=== PATIENT | female | born 1980 | race Caucasian/White ===

== ENCOUNTER → 2017-12-02 | Outpatient (CLI) | payer MEDICAID | LOC: PETCFH 10:19 | PROVIDERS: ATTEND Physician Assistant Medical | DX: Z02.9 Encounter for administrative examinations, unspecified (principal) ==

== ENCOUNTER 2017-12-26 12:49 | Inpatient (IN) | payer MEDICAID ==
[~2017-12-26] VITALS: Ht 162.6 cm; Wt 48.8 kg
[2017-12-26] MEDS ORDERED: DIPHENHYDRAMINE 50 MG/ML, 1ML ONE (13:17)
[2017-12-26] MEDS ORDERED: METOCLOPRAMIDE 5 MG/ML, 2ML ONE (13:18)
[2017-12-26] MEDS ORDERED: INSU1CAR11 SC (13:29)
[2017-12-26] MEDS ORDERED: METOCLOPRAMIDE 5 MG/ML, 2ML IVPush ONE (13:30)
[2017-12-26] MEDS ORDERED: DIPHENHYDRAMINE 50 MG/ML, 1ML IVPush ONE (13:30)
[2017-12-26] MEDS ORDERED: SODIUM CHLORIDE 0.9% 1,000ML IVBOLUS ONE ×2 (13:30→16:00)
[2017-12-26] MEDS ORDERED: PLEASE ENTER ALLERGIES MC SCH (13:30)
[2017-12-26 13:57] LABS: PH, VENOUS 7.327 pH (7.320-7.420)
[2017-12-26 14:02] LABS: BASOPHILS # (AUTO) 0.05 x10^3/uL (0-0.1); BASOPHILS % (AUTO) 0 % (0-1); EOSINOPHILS % (AUTO) 0 % (1-7); LYMPHOCYTES # (AUTO) 1.17 x10^3/uL (1-3.4); LYMPHOCYTES % (AUTO) 7 % (22-44); MD NO; MEAN CORPUSCULAR HEMOGLOBIN 26.7 pg (27.0-34.8); MEAN CORPUSCULAR HGB CONC 32.7 g/dL (32.4-35.8); MEAN CORPUSCULAR VOLUME 81.6 fL (80-100); MEAN PLATELET VOLUME 9.7 fL (7.4-10.4); MONOCYTES # (AUTO) 0.68 x10^3/uL (0.2-0.8); MONOCYTES % (AUTO) 4 % (2-9); NEUTROPHILS # (AUTO) 15.38 x10^3/uL (1.8-6.8); NEUTROPHILS % (AUTO) 89 % (42-75); PLATELET COUNT 449 x10^3/uL (130-400); RED BLOOD COUNT 4.79 x10^6/uL (3.82-5.3); RED CELL DISTRIBUTION WIDTH 15.8 % (9.6-15.2)
[2017-12-26 14:09] LABS: ALBUMIN 3.9 g/dL (3.4-5.0); ANION GAP 19 mmol/L (5-15); CALCIUM 8.4 mg/dL (8.5-10.1); CHLORIDE 94 mmol/L (98-107)
[2017-12-26 14:13] LABS: ALANINE AMINOTRANSFERASE 25 U/L (12-78); ALKALINE PHOSPHATASE 103 U/L (45-117); BILIRUBIN,TOTAL 0.5 mg/dL (0.2-1.0); TOTAL PROTEIN 8.6 g/dL (6.4-8.2)
[2017-12-26 14:50] LABS: ACETONE, SERUM Large (80mg/dL) mg/dL (Negative)
[2017-12-26 14:59] LABS: MICROSCOPIC NOT IND
[2017-12-26 15:04] LABS: CULTURE INDICATED? NO
[2017-12-26 15:20] LABS: AMPHETAMINE SCREEN, URINE Negative (Negative); BARBITURATE SCREEN, URINE Negative (Negative); BENZODIAZEPINE SCREEN, URINE Negative (Negative); CANNABINOID SCREEN, URINE Negative (Negative); COCAINE SCREEN, URINE Negative (Negative); METHADONE SCREEN, URINE Negative (Negative); OPIATE SCREEN, URINE Negative (Negative)
[2017-12-26] MEDS ORDERED: SODIUM CHLORIDE 0.9% 1,000 ML IV SCH (16:19)
[2017-12-26] MEDS ORDERED: INSULIN LISPRO 100 UNITS/ML, PEN SQ-INSULIN SCH ×2 (16:30)
[2017-12-26] MEDS ORDERED: ONDANSETRON ODT 4 MG PO PRN (16:30)
[2017-12-26] MEDS ORDERED: PROMETHAZINE 25 MG/ML, 1ML IM PRN (16:30)
[2017-12-26] MEDS: HEPARIN 5,000 UNITS/ML, 1ML SQ SCH (16:30)
[2017-12-26 16:39] LABS: ANION GAP 20 mmol/L (5-15); CALCIUM 8.1 mg/dL (8.5-10.1); CHLORIDE 97 mmol/L (98-107)
[2017-12-26 16:41] LABS: CREATININE 1.07 mg/dL (0.55-1.02)
[2017-12-26 17:24] VITALS: BP 166/91
[2017-12-26 17:57] LABS: ANION GAP 21 mmol/L (5-15); CALCIUM 7.9 mg/dL (8.5-10.1); CHLORIDE 101 mmol/L (98-107); CREATININE 1.06 mg/dL (0.55-1.02)
[2017-12-26] MEDS ORDERED: SODIUM CHLORIDE 0.45% 1,000 ML IV SCH (18:00)
[2017-12-26] MEDS: ONDANSETRON 2MG/ML, 2ML IVPush PRN (18:08)
[2017-12-26] MEDS ORDERED: POTASSIUM CHLORIDE 20 MEQ in SODIUM CHLORIDE 0.45% 1,000 ML IV SCH (18:30)
[2017-12-26] MEDS ORDERED: REGULAR INSULIN 62.5 UNITS in SODIUM CHLORIDE 0.9% 249.375 ML IV PRN (18:37)
[2017-12-26] MEDS ORDERED: D5%-0.45% NACL 1,000 ML IV PRN (18:37)
[2017-12-26] MEDS: MORPHINE SULFATE 4 MG/ML, 1ML IVPush PRN ×2 (18:41→22:43)
[2017-12-26 19:27] LABS: MICROSCOPIC AUTO
[2017-12-26 19:29] LABS: CULTURE INDICATED? YES
[2017-12-26] MEDS: hydrALAzine 20 MG/ML, 1ML IV PRN (19:55)
[2017-12-26] MEDS: METOCLOPRAMIDE 5 MG/ML, 2ML IVPush PRN (20:43)
[2017-12-26] MEDS ORDERED: INSULIN GLARGINE 100 UNITS/ML, PEN SQ-INSULIN SCH (21:00)
[2017-12-26 21:42] LABS: ANION GAP 22 mmol/L (5-15); CALCIUM 7.5 mg/dL (8.5-10.1); CHLORIDE 104 mmol/L (98-107); CREATININE 0.88 mg/dL (0.55-1.02)
[2017-12-26] MEDS ORDERED: SODIUM PHOSPHATE 20 MMOL in SODIUM CHLORIDE 0.9% 500 ML IV ONE (22:30)
[2017-12-26] MEDS: D5%-0.45NACL+KCL 20MEQ 1,000 ML IV SCH (22:43)
[2017-12-27] MEDS: HEPARIN 5,000 UNITS/ML, 1ML SQ SCH ×2 (00:24→08:30)
[2017-12-27] MEDS: ONDANSETRON 2MG/ML, 2ML IVPush PRN (01:19)
[2017-12-27] MEDS: MORPHINE SULFATE 4 MG/ML, 1ML IVPush PRN ×2 (03:39→10:14)
[2017-12-27] MEDS: hydrALAzine 20 MG/ML, 1ML IV PRN ×2 (03:39→15:55)
[2017-12-27] MEDS: METOCLOPRAMIDE 5 MG/ML, 2ML IVPush PRN ×3 (03:39→15:45)
[2017-12-27 03:46] LABS: MEAN CORPUSCULAR HGB CONC 32.9 g/dL (32.4-35.8); MEAN CORPUSCULAR VOLUME 81.9 fL (80-100); MEAN PLATELET VOLUME 9.2 fL (7.4-10.4); PLATELET COUNT 550 x10^3/uL (130-400); RED BLOOD COUNT 4.77 x10^6/uL (3.82-5.3); RED CELL DISTRIBUTION WIDTH 15.9 % (9.6-15.2)
[2017-12-27 03:52] LABS: ALANINE AMINOTRANSFERASE 23 U/L (12-78); ALBUMIN 3.5 g/dL (3.4-5.0); ANION GAP 19 mmol/L (5-15); CALCIUM 7.4 mg/dL (8.5-10.1); CHLORIDE 102 mmol/L (98-107); CREATININE 1.02 mg/dL (0.55-1.02)
[2017-12-27 03:57] LABS: BASOPHILS # (AUTO) 0.01 x10^3/uL (0-0.1); BASOPHILS % (AUTO) 0 % (0-1); EOSINOPHILS % (AUTO) 0 % (1-7); LYMPHOCYTES # (AUTO) 1.23 x10^3/uL (1-3.4); LYMPHOCYTES % (AUTO) 5 % (22-44); MD SCAN; MONOCYTES # (AUTO) 1.59 x10^3/uL (0.2-0.8); MONOCYTES % (AUTO) 6 % (2-9); NEUTROPHILS # (AUTO) 22.88 x10^3/uL (1.8-6.8); NEUTROPHILS % (AUTO) 89 % (42-75)
[2017-12-27 04:01] LABS: ALKALINE PHOSPHATASE 95 U/L (45-117); BILIRUBIN,TOTAL 0.3 mg/dL (0.2-1.0); TOTAL PROTEIN 8.1 g/dL (6.4-8.2)
[2017-12-27] MEDS ORDERED: MAGNESIUM SULFATE PMX 2GM/50ML 50 ML IV ONE ×2 (05:00→08:00)
[2017-12-27] MEDS ORDERED: AMPICILLIN/SULBACTAM 3 GM in SODIUM CHLORIDE 0.9% 100 ML IV SCH (08:00)
[2017-12-27] MEDS: D5%-0.45NACL+KCL 20MEQ 1,000 ML IV SCH ×4 (08:00→22:02)
[2017-12-27 08:34] LABS: ANION GAP 18 mmol/L (5-15); CALCIUM 7.4 mg/dL (8.5-10.1); CHLORIDE 100 mmol/L (98-107); CREATININE 1.24 mg/dL (0.55-1.02)
[2017-12-27] MEDS ORDERED: LIDOCAINE-MPF 2%, 2ML ONE (08:52)
[2017-12-27 09:00] VITALS: BP 133/74
[2017-12-27] MEDS ORDERED: PANTOPRAZOLE 40 MG IV IVPush SCH (09:00)
[2017-12-27] MEDS ORDERED: REGULAR INSULIN 62.5 UNITS in SODIUM CHLORIDE 0.9% 249.375 ML IV PRN (09:00)
[2017-12-27 09:22] LABS: GASTRIC PH 2 (1-7)
[2017-12-27 09:37] LABS: GASTRIC OCCULT BLD POSITIVE (NEGATIVE)
[2017-12-27] MEDS: SODIUM CHLORIDE 0.9% 1,000 ML IV SCH ×3 (12:04→23:41)
[2017-12-27 13:42] LABS: ANION GAP 12 mmol/L (5-15); CALCIUM 7.4 mg/dL (8.5-10.1); CHLORIDE 109 mmol/L (98-107)
[2017-12-27 13:47] LABS: CREATININE 1.02 mg/dL (0.55-1.02)
[2017-12-27 13:48] LABS: % IRON SATURATION 34 % (20-55); IRON LEVEL 132 mcg/dL (50-170); TOTAL IRON BINDING CAPACITY 388 mcg/dL (250-450)
[2017-12-27] MEDS: AMPICILLIN/SULBACTAM 3 GM in SODIUM CHLORIDE 0.9% 100 ML IV SCH ×2 (15:24→22:02)
[2017-12-27 16:59] LABS: ANION GAP 9 mmol/L (5-15); CHLORIDE 106 mmol/L (98-107); CREATININE 0.79 mg/dL (0.55-1.02)
[2017-12-27 18:31] VITALS: BP 116/55
[2017-12-27 21:08] LABS: ANION GAP 12 mmol/L (5-15); CALCIUM 6.8 mg/dL (8.5-10.1); CHLORIDE 105 mmol/L (98-107); CREATININE 0.73 mg/dL (0.55-1.02)
[2017-12-27] MEDS: PANTOPRAZOLE 40 MG IV IVPush SCH (22:03)
[2017-12-28 02:28] LABS: ANION GAP 8 mmol/L (5-15); CALCIUM 7.2 mg/dL (8.5-10.1); CHLORIDE 108 mmol/L (98-107); CREATININE 0.67 mg/dL (0.55-1.02)
[2017-12-28] MEDS: AMPICILLIN/SULBACTAM 3 GM in SODIUM CHLORIDE 0.9% 100 ML IV SCH ×3 (04:20→18:26)
[2017-12-28 05:42] LABS: ANION GAP 8 mmol/L (5-15); CALCIUM 6.8 mg/dL (8.5-10.1); CHLORIDE 107 mmol/L (98-107)
[2017-12-28 05:45] LABS: CREATININE 0.65 mg/dL (0.55-1.02)
[2017-12-28 05:53] LABS: MEAN CORPUSCULAR HEMOGLOBIN 27.4 pg (27.0-34.8); MEAN CORPUSCULAR HGB CONC 33.3 g/dL (32.4-35.8); MEAN CORPUSCULAR VOLUME 82.2 fL (80-100); MEAN PLATELET VOLUME 8.7 fL (7.4-10.4); PLATELET COUNT 296 x10^3/uL (130-400); RED BLOOD COUNT 3.26 x10^6/uL (3.82-5.3); RED CELL DISTRIBUTION WIDTH 16.1 % (9.6-15.2)
[2017-12-28] MEDS: D5%-0.45NACL+KCL 20MEQ 1,000 ML IV SCH (06:09)
[2017-12-28 06:17] LABS: BASOPHILS # (AUTO) 0.02 x10^3/uL (0-0.1); BASOPHILS % (AUTO) 0 % (0-1); EOSINOPHILS # (AUTO) 0.02 x10^3/uL (0-0.4); EOSINOPHILS % (AUTO) 0 % (1-7); LYMPHOCYTES % (AUTO) 8 % (22-44); MD SCAN; MONOCYTES # (AUTO) 1.03 x10^3/uL (0.2-0.8); MONOCYTES % (AUTO) 7 % (2-9); NEUTROPHILS # (AUTO) 11.84 x10^3/uL (1.8-6.8); NEUTROPHILS % (AUTO) 85 % (42-75)
[2017-12-28] MEDS: MORPHINE SULFATE 4 MG/ML, 1ML IVPush PRN ×4 (06:50→21:20)
[2017-12-28] MEDS: SODIUM CHLORIDE 0.9% 1,000 ML IV SCH ×3 (07:13→18:26)
[2017-12-28] MEDS: PANTOPRAZOLE 40 MG IV IVPush SCH ×2 (07:22→21:20)
[2017-12-28] MEDS ORDERED: SODIUM PHOSPHATE 20 MMOL in SODIUM CHLORIDE 0.9% 500 ML IV ONE (07:30)
[2017-12-28] MEDS: INSULIN GLARGINE 100 UNITS/ML, PEN SQ-INSULIN SCH ×2 (07:45→21:00)
[2017-12-28] MEDS: INSULIN LISPRO 100 UNITS/ML, PEN SQ-INSULIN SCH ×3 (10:57→21:00)
[2017-12-28 12:46] VITALS: BP 99/64
[2017-12-28] MEDS ORDERED: ERGOCALCIFEROL 50,000 UNIT CAPSULE PO SCH (16:00)
[2017-12-28 21:05] VITALS: BP 130/74
[2017-12-29] MEDS: AMPICILLIN/SULBACTAM 3 GM in SODIUM CHLORIDE 0.9% 100 ML IV SCH ×4 (00:28→23:43)
[2017-12-29] MEDS: MORPHINE SULFATE 4 MG/ML, 1ML IVPush PRN ×6 (01:59→22:47)
[2017-12-29 03:56] VITALS: BP 115/66
[2017-12-29] MEDS: SODIUM CHLORIDE 0.9% 1,000 ML IV SCH (06:29)
[2017-12-29 06:38] LABS: MEAN CORPUSCULAR HEMOGLOBIN 27.3 pg (27.0-34.8); MEAN CORPUSCULAR HGB CONC 33.1 g/dL (32.4-35.8); MEAN CORPUSCULAR VOLUME 82.6 fL (80-100); MEAN PLATELET VOLUME 8.6 fL (7.4-10.4); PLATELET COUNT 264 x10^3/uL (130-400); RED BLOOD COUNT 3.04 x10^6/uL (3.82-5.3); RED CELL DISTRIBUTION WIDTH 16.5 % (9.6-15.2)
[2017-12-29 06:47] LABS: ANION GAP 6 mmol/L (5-15); CHLORIDE 109 mmol/L (98-107)
[2017-12-29 06:48] LABS: CREATININE 0.52 mg/dL (0.55-1.02)
[2017-12-29 07:00] LABS: BASOPHILS # (AUTO) 0.05 x10^3/uL (0-0.1); BASOPHILS % (AUTO) 1 % (0-1); EOSINOPHILS # (AUTO) 0.17 x10^3/uL (0-0.4); EOSINOPHILS % (AUTO) 2 % (1-7); LYMPHOCYTES # (AUTO) 2.41 x10^3/uL (1-3.4); LYMPHOCYTES % (AUTO) 26 % (22-44); MD SCAN; MONOCYTES # (AUTO) 0.95 x10^3/uL (0.2-0.8); MONOCYTES % (AUTO) 10 % (2-9); NEUTROPHILS # (AUTO) 5.83 x10^3/uL (1.8-6.8); NEUTROPHILS % (AUTO) 62 % (42-75)
[2017-12-29 07:23] VITALS: BP 147/77
[2017-12-29] MEDS: INSULIN LISPRO 100 UNITS/ML, PEN SQ-INSULIN SCH ×4 (08:36→21:00)
[2017-12-29] MEDS: PANTOPRAZOLE 40 MG IV IVPush SCH ×2 (08:37→21:10)
[2017-12-29] MEDS: INSULIN GLARGINE 100 UNITS/ML, PEN SQ-INSULIN SCH ×2 (08:37→21:10)
[2017-12-29] MEDS: IRON SUCROSE COMPLEX 100MG/5ML IV SCH (08:38)
[2017-12-29] MEDS: ONDANSETRON 2MG/ML, 2ML IVPush PRN (09:00)
[2017-12-29 12:26] VITALS: BP 142/84
[2017-12-29 20:44] VITALS: BP 138/82
[2017-12-30] VITALS (7 sets, daily range): BP systolic 120–173; BP diastolic 72–107
[2017-12-30] MEDS ORDERED: ARTIFICIAL TEARS 15 DROP/ML BOTTLE EACHEYE PRN
[2017-12-30] MEDS: MORPHINE SULFATE 4 MG/ML, 1ML IVPush PRN ×4 (02:44→20:41)
[2017-12-30] MEDS: AMPICILLIN/SULBACTAM 3 GM in SODIUM CHLORIDE 0.9% 100 ML IV SCH ×3 (06:10→19:36)
[2017-12-30] MEDS: INSULIN GLARGINE 100 UNITS/ML, PEN SQ-INSULIN SCH ×2 (06:11→19:56)
[2017-12-30 06:22] LABS: BASOPHILS # (AUTO) 0.03 x10^3/uL (0-0.1); BASOPHILS % (AUTO) 1 % (0-1); EOSINOPHILS # (AUTO) 0.15 x10^3/uL (0-0.4); EOSINOPHILS % (AUTO) 3 % (1-7); LYMPHOCYTES # (AUTO) 1.86 x10^3/uL (1-3.4); LYMPHOCYTES % (AUTO) 32 % (22-44); MD NO; MEAN CORPUSCULAR HGB CONC 32.7 g/dL (32.4-35.8); MEAN CORPUSCULAR VOLUME 82.4 fL (80-100); MEAN PLATELET VOLUME 8.6 fL (7.4-10.4); MONOCYTES # (AUTO) 0.57 x10^3/uL (0.2-0.8); MONOCYTES % (AUTO) 10 % (2-9); NEUTROPHILS # (AUTO) 3.24 x10^3/uL (1.8-6.8); NEUTROPHILS % (AUTO) 55 % (42-75); PLATELET COUNT 277 x10^3/uL (130-400); RED BLOOD COUNT 2.93 x10^6/uL (3.82-5.3); RED CELL DISTRIBUTION WIDTH 16.1 % (9.6-15.2)
[2017-12-30 06:32] LABS: INTERNATIONAL NORMALIZED RATIO 0.95 (0.93-1.1); PROTHROMBIN TIME 9.8 Seconds (9.6-11.5)
[2017-12-30] MEDS: INSULIN LISPRO 100 UNITS/ML, PEN SQ-INSULIN SCH ×4 (07:00→19:56)
[2017-12-30] MEDS ORDERED: DEXTROSE 50%, 50ML SYRINGE ONE (08:24)
[2017-12-30] MEDS ORDERED: GLUCAGON 1 MG IM PRN (08:30)
[2017-12-30] MEDS ORDERED: DEXTROSE 50%, 50ML SYRINGE IVPush PRN (08:30)
[2017-12-30] MEDS ORDERED: DEXTROSE 4 GM TAB.CHEW PO PRN (08:30)
[2017-12-30] MEDS: PANTOPRAZOLE 40 MG IV IVPush SCH ×2 (08:31→20:41)
[2017-12-30] MEDS: IRON SUCROSE COMPLEX 100MG/5ML IV SCH (08:31)
[2017-12-30] MEDS ORDERED: INSULIN GLARGINE 100 UNITS/ML, PEN SQ-INSULIN ONE (09:00)
[2017-12-30] MEDS: SODIUM CHLORIDE FLUSH 10ML SYR IVF SCH ×2 (09:00→19:36)
[2017-12-30 11:40] LABS: ANION GAP 7 mmol/L (5-15); CALCIUM 7.9 mg/dL (8.5-10.1); CHLORIDE 104 mmol/L (98-107); CREATININE 0.54 mg/dL (0.55-1.02)
[2017-12-30] MEDS ORDERED: FENTANYL PF 100 MCG/2ML ONE (14:21)
[2017-12-30] MEDS ORDERED: MIDAZOLAM 1 MG/ML, 5ML ONE (14:21)
[2017-12-30] MEDS: hydrALAzine 20 MG/ML, 1ML IV PRN (16:24)
[2017-12-31 01:02] VITALS: BP 107/71
[2017-12-31] MEDS: AMPICILLIN/SULBACTAM 3 GM in SODIUM CHLORIDE 0.9% 100 ML IV SCH ×4 (01:08→20:07)
[2017-12-31] MEDS: MORPHINE SULFATE 4 MG/ML, 1ML IVPush PRN ×3 (01:08→09:59)
[2017-12-31 08:11] VITALS: BP 131/86
[2017-12-31] MEDS: INSULIN LISPRO 100 UNITS/ML, PEN SQ-INSULIN SCH ×4 (08:27→20:09)
[2017-12-31] MEDS: SODIUM CHLORIDE FLUSH 10ML SYR IVF SCH ×2 (08:33→20:08)
[2017-12-31] MEDS: INSULIN GLARGINE 100 UNITS/ML, PEN SQ-INSULIN SCH ×2 (09:47→20:08)
[2017-12-31] MEDS: PANTOPRAZOLE 40 MG IV IVPush SCH ×2 (09:48→20:07)
[2017-12-31] MEDS: IRON SUCROSE COMPLEX 100MG/5ML IV SCH (09:54)
[2017-12-31] MEDS: MAALOX/HYOSCYAMINE/LIDOCAINE 45 ML BTL PO SCH ×2 (12:31→19:06)
[2017-12-31] MEDS: OXYcodone IR 5MG TABLET PO PRN ×2 (13:02→20:09)
[2017-12-31 13:55] VITALS: BP 150/94
[2017-12-31] MEDS: SUCRALFATE 1 GM/10 ML UDC PO SCH ×2 (17:01→20:07)
[2017-12-31] MEDS: ONDANSETRON 2MG/ML, 2ML IVPush PRN (18:16)
[2017-12-31 19:45] VITALS: BP 130/80
[2017-12-31] MEDS ORDERED: POLYETHYLENE GLYCOL 17 GM PACKET PO ONE (20:30)
[2018-01-01 02:04] VITALS: BP 124/80
[2018-01-01] MEDS: AMPICILLIN/SULBACTAM 3 GM in SODIUM CHLORIDE 0.9% 100 ML IV SCH ×3 (02:13→13:30)
[2018-01-01] MEDS: OXYcodone IR 5MG TABLET PO PRN ×2 (03:02→08:48)
[2018-01-01] MEDS: ONDANSETRON 2MG/ML, 2ML IVPush PRN (04:15)
[2018-01-01 05:46] LABS: CHLORIDE 102 mmol/L (98-107)
[2018-01-01 05:48] LABS: BASOPHILS # (AUTO) 0.02 x10^3/uL (0-0.1); BASOPHILS % (AUTO) 0 % (0-1); EOSINOPHILS # (AUTO) 0.19 x10^3/uL (0-0.4); EOSINOPHILS % (AUTO) 2 % (1-7); LYMPHOCYTES # (AUTO) 2.25 x10^3/uL (1-3.4); LYMPHOCYTES % (AUTO) 26 % (22-44); MD NO; MEAN CORPUSCULAR HEMOGLOBIN 27.6 pg (27.0-34.8); MEAN CORPUSCULAR VOLUME 83.7 fL (80-100); MEAN PLATELET VOLUME 8.7 fL (7.4-10.4); MONOCYTES # (AUTO) 1.01 x10^3/uL (0.2-0.8); MONOCYTES % (AUTO) 12 % (2-9); NEUTROPHILS # (AUTO) 5.07 x10^3/uL (1.8-6.8); NEUTROPHILS % (AUTO) 59 % (42-75); PLATELET COUNT 352 x10^3/uL (130-400); RED BLOOD COUNT 3.27 x10^6/uL (3.82-5.3)
[2018-01-01 05:52] LABS: ANION GAP 7 mmol/L (5-15); CALCIUM 8.3 mg/dL (8.5-10.1); CREATININE 0.68 mg/dL (0.55-1.02)
[2018-01-01] MEDS: MAALOX/HYOSCYAMINE/LIDOCAINE 45 ML BTL PO SCH ×2 (07:32→12:03)
[2018-01-01] MEDS: SUCRALFATE 1 GM/10 ML UDC PO SCH ×2 (07:32→12:03)
[2018-01-01] MEDS: SODIUM CHLORIDE FLUSH 10ML SYR IVF SCH (07:33)
[2018-01-01 07:35] VITALS: BP 159/100
[2018-01-01] MEDS: PANTOPRAZOLE 40 MG IV IVPush SCH (07:40)
[2018-01-01] MEDS: METOCLOPRAMIDE 5 MG/ML, 2ML IVPush PRN (07:40)
[2018-01-01] MEDS: INSULIN LISPRO 100 UNITS/ML, PEN SQ-INSULIN SCH ×2 (08:54→12:03)
[2018-01-01] MEDS: INSULIN GLARGINE 100 UNITS/ML, PEN SQ-INSULIN SCH (08:55)
[2018-01-01] MEDS ORDERED: IRON SUCROSE COMPLEX 100MG/5ML IV SCH (09:00)
[2018-01-01] MEDS ORDERED: SUCR1ORA5 PO (10:38)
[2018-01-01] MEDS ORDERED: INSU100I13 SQ-INSULIN (10:38)
== END 2018-01-01 15:44 | disposition home or self-care (01) | DRG 380 ==
LOC: ED 14:00 → EDIP 15:40 → 3NE 16:33 → CCU 19:43 → 4EST 12-28 11:08 → DCLOUNGE 01-01 15:36
PROVIDERS: ADMIT Internal Medicine; ATTEND Family Medicine
PROC: 0T9B70Z Drainage of Bladder with Drainage Device, Via Natural or Artificial Opening (ICD-10-PCS; principal; 2017-12-26)
PROC: 02HV33Z Insertion of Infusion Device into Superior Vena Cava, Percutaneous Approach (ICD-10-PCS; 2017-12-27)
PROC: B548ZZA Ultrasonography of Superior Vena Cava, Guidance (ICD-10-PCS; 2017-12-27)
PROC: 0DJ08ZZ Inspection of Upper Intestinal Tract, Via Natural or Artificial Opening Endoscopic (ICD-10-PCS; 2017-12-30)
DX: K22.11 Ulcer of esophagus with bleeding (principal); E10.10 Type 1 diabetes mellitus with ketoacidosis without coma; E87.1 Hypo-osmolality and hyponatremia; R65.10 Systemic inflammatory response syndrome (SIRS) of non-infectious origin without acute organ dysfunction; K22.2 Esophageal obstruction; K29.60 Other gastritis without bleeding; K44.9 Diaphragmatic hernia without obstruction or gangrene; K31.84 Gastroparesis; E10.43 Type 1 diabetes mellitus with diabetic autonomic (poly)neuropathy; D50.9 Iron deficiency anemia, unspecified; K21.9 Gastro-esophageal reflux disease without esophagitis; F17.200 Nicotine dependence, unspecified, uncomplicated; E86.0 Dehydration; Z79.4 Long term (current) use of insulin
CPT/HCPCS: 36415; 36569; 71045; 76937; 77001; 80048; 80053; 80307; 80329; 81001; 81003; 82010; 82271; 82306; 82728; 82800; 82803; 82947; 82962; 83540; 83550; 83690; 83735; 83970; 84100; 84443; 84702; 85025; 85610; 85730; 86677; 87040; 87081; 87086; 93005; 96374; 96375; 99291; J0295; J1756; J1815; J2250; J2405; J2550; J3010; J3480; J3490; C1751; C9113; G0480; J0360; J1200; J2765; J3475; J7030; J7040; J7050

== ENCOUNTER 2018-01-03 21:55 | Emergency (ER) | payer MEDICAID ==
[~2018-01-03] VITALS: Ht 162.6 cm; Wt 50.0 kg
[~2018-01-03 21:55] MED LIST: INSU100I13 SQ-INSULIN; INSU1CAR11 SC; SUCR1ORA5 PO
[2018-01-03] MEDS ORDERED: MAALOX/HYOSCYAMINE/LIDOCAINE 45 ML BTL ONE (22:09)
[2018-01-03 22:24] LABS: PH, VENOUS 7.475 pH (7.320-7.420)
[2018-01-03 22:30] LABS: ACETONE, SERUM Trace (10mg/dL) mg/dL (Negative)
[2018-01-03] MEDS ORDERED: MAALOX/HYOSCYAMINE/LIDOCAINE 45 ML BTL PO ONE (22:30)
[2018-01-03] MEDS ORDERED: SUCRALFATE 1 GM/10 ML UDC PO ONE (22:30)
[2018-01-03 22:31] LABS: MEAN CORPUSCULAR HEMOGLOBIN 27.4 pg (27.0-34.8); MEAN CORPUSCULAR HGB CONC 32.8 g/dL (32.4-35.8); MEAN CORPUSCULAR VOLUME 83.7 fL (80-100); MEAN PLATELET VOLUME 8.9 fL (7.4-10.4); PLATELET COUNT 608 x10^3/uL (130-400); RED BLOOD COUNT 3.96 x10^6/uL (3.82-5.3); RED CELL DISTRIBUTION WIDTH 17.5 % (9.6-15.2)
[2018-01-03 22:35] LABS: ALBUMIN 3.4 g/dL (3.4-5.0); ANION GAP 6 mmol/L (5-15); CALCIUM 10.1 mg/dL (8.5-10.1); CHLORIDE 102 mmol/L (98-107); CREATININE 1.59 mg/dL (0.55-1.02)
[2018-01-03 22:51] LABS: BASOPHILS # (AUTO) 0.06 x10^3/uL (0-0.1); BASOPHILS % (AUTO) 1 % (0-1); EOSINOPHILS # (AUTO) 0.32 x10^3/uL (0-0.4); EOSINOPHILS % (AUTO) 3 % (1-7); LYMPHOCYTES % (AUTO) 32 % (22-44); MD SCAN; MONOCYTES # (AUTO) 1.65 x10^3/uL (0.2-0.8); MONOCYTES % (AUTO) 16 % (2-9); NEUTROPHILS # (AUTO) 5.03 x10^3/uL (1.8-6.8); NEUTROPHILS % (AUTO) 49 % (42-75)
[2018-01-03] MEDS ORDERED: HYDROmorphone 2 MG/ML, 1ML ONE (23:18)
[2018-01-03 23:24] VITALS: BP 153/89
[2018-01-03] MEDS ORDERED: HYDROmorphone 2 MG/ML, 1ML IM ONE (23:30)
[2018-01-03] MEDS ORDERED: HYDROmorphone 1 MG/ML, 1ML IM ONE (23:30)
== END 2018-01-03 23:30 | disposition home or self-care (01) ==
LOC: ED 22:37
DX: K22.10 Ulcer of esophagus without bleeding (principal); E11.10 Type 2 diabetes mellitus with ketoacidosis without coma; F17.200 Nicotine dependence, unspecified, uncomplicated
CPT/HCPCS: 36415; 80048; 82010; 82040; 82803; 85025; 93005; 96372; 99285; J1170

== ENCOUNTER 2018-02-27 22:21 | Inpatient (IN) | payer MEDICAID ==
[~2018-02-27] VITALS: Ht 162.6 cm; Wt 52.5 kg
[2018-02-27] MEDS ORDERED: REGULAR INSULIN 62.5 UNITS in SODIUM CHLORIDE 0.9% 249.375 ML IV PRN (22:32)
[2018-02-27] MEDS ORDERED: PROMETHAZINE 25 MG/ML, 1ML ONE (22:55)
[2018-02-27] MEDS ORDERED: ONDANSETRON 2MG/ML, 2ML ONE (22:56)
[2018-02-27] MEDS ORDERED: SODIUM CHLORIDE 0.9% 1,000ML IVBOLUS ONE (23:00)
[2018-02-27] MEDS ORDERED: ONDANSETRON 2MG/ML, 2ML IVPush ONE (23:00)
[2018-02-27] MEDS ORDERED: PROMETHAZINE 25 MG/ML, 1ML IM ONE (23:00)
[2018-02-27 23:04] LABS: MEAN CORPUSCULAR HEMOGLOBIN 29.8 pg (27.0-34.8); MEAN CORPUSCULAR HGB CONC 33.4 g/dL (32.4-35.8); MEAN PLATELET VOLUME 10.6 fL (7.4-10.4); PLATELET COUNT 475 x10^3/uL (130-400); RED BLOOD COUNT 5.02 x10^6/uL (3.82-5.3); RED CELL DISTRIBUTION WIDTH 15.6 % (9.6-15.2)
[2018-02-27 23:10] LABS: PH, VENOUS 7.409 pH (7.320-7.420)
[2018-02-27 23:14] LABS: ALANINE AMINOTRANSFERASE 22 U/L (12-78); ALBUMIN 3.5 g/dL (3.4-5.0); ANION GAP 24 mmol/L (5-15); CHLORIDE 65 mmol/L (98-107); CREATININE 2.79 mg/dL (0.55-1.02)
[2018-02-27 23:19] LABS: ALKALINE PHOSPHATASE 128 U/L (45-117); BILIRUBIN,TOTAL 0.4 mg/dL (0.2-1.0)
[2018-02-27 23:28] LABS: BASOPHILS # (AUTO) 0.02 x10^3/uL (0-0.1); BASOPHILS % (AUTO) 0 % (0-1); EOSINOPHILS % (AUTO) 0 % (1-7); LYMPHOCYTES # (AUTO) 1.01 x10^3/uL (1-3.4); LYMPHOCYTES % (AUTO) 4 % (22-44); MD SCAN; MONOCYTES # (AUTO) 1.38 x10^3/uL (0.2-0.8); MONOCYTES % (AUTO) 6 % (2-9); NEUTROPHILS # (AUTO) 22.27 x10^3/uL (1.8-6.8); NEUTROPHILS % (AUTO) 90 % (42-75)
[2018-02-27] MEDS ORDERED: CEFTRIAXONE PMX 1GM/50ML 50 ML IV ONE (23:45)
[2018-02-27 23:49] LABS: CULTURE INDICATED? YES; MICROSCOPIC AUTO
[2018-02-28 00:02] LABS: AMPHETAMINE SCREEN, URINE Negative (Negative); BARBITURATE SCREEN, URINE Negative (Negative); BENZODIAZEPINE SCREEN, URINE Negative (Negative); CANNABINOID SCREEN, URINE Negative (Negative); COCAINE SCREEN, URINE Negative (Negative); METHADONE SCREEN, URINE Negative (Negative); OPIATE SCREEN, URINE Negative (Negative)
[2018-02-28] MEDS ORDERED: CEFTRIAXONE PMX 1GM/50ML 50 ML ONE (00:09)
[2018-02-28 00:19] LABS: ACETONE, SERUM Large (80mg/dL) mg/dL (Negative)
[2018-02-28] MEDS ORDERED: D5%-0.45% NACL 1,000 ML IV PRN (00:41)
[2018-02-28] MEDS ORDERED: REGULAR INSULIN 62.5 UNITS in SODIUM CHLORIDE 0.9% 249.375 ML IV PRN (00:41)
[2018-02-28] MEDS ORDERED: ACETAMINOPHEN 325 MG TABLET PO PRN (01:00)
[2018-02-28] MEDS ORDERED: ONDANSETRON 2MG/ML, 2ML IVPush PRN (01:00)
[2018-02-28] MEDS ORDERED: POLYETHYLENE GLYCOL 17 GM PACKET PO PRN (01:00)
[2018-02-28] MEDS ORDERED: morphine SULFATE 10 MG/ML, 1ML IVPush PRN (01:00)
[2018-02-28] MEDS ORDERED: BISACODYL 10 MG SUPP PR PRN (01:00)
[2018-02-28] MEDS ORDERED: LABETALOL 5MG/ML, 20ML IVPush PRN (01:00)
[2018-02-28] MEDS ORDERED: PROMETHAZINE 25 MG/ML, 1ML IM PRN (01:00)
[2018-02-28] MEDS ORDERED: DOCUSATE 100 MG CAPSULE PO PRN (01:00)
[2018-02-28] MEDS ORDERED: hydrALAzine 20 MG/ML, 1ML IVPush PRN (01:00)
[2018-02-28] MEDS ORDERED: ONDANSETRON ODT 4 MG PO PRN (01:00)
[2018-02-28] MEDS ORDERED: PANTOPRAZOLE 40 MG IV ONE (01:07)
[2018-02-28] MEDS ORDERED: HEPARIN 5,000 UNITS/ML, 1ML ONE (01:07)
[2018-02-28] MEDS ORDERED: LABETALOL 5MG/ML, 20ML ONE (01:07)
[2018-02-28] MEDS: HEPARIN 5,000 UNITS/ML, 1ML SQ SCH ×4 (01:13→23:53)
[2018-02-28] MEDS: PANTOPRAZOLE 40 MG IV IVPush SCH ×2 (01:13→12:14)
[2018-02-28] MEDS: SODIUM CHLORIDE 0.9% 1,000 ML IV SCH ×4 (01:15→19:09)
[2018-02-28 01:25] LABS: ANION GAP 24 mmol/L (5-15); CHLORIDE 83 mmol/L (98-107); CREATININE 2.14 mg/dL (0.55-1.02)
[2018-02-28] MEDS ORDERED: METOCLOPRAMIDE 5 MG/ML, 2ML IVPush PRN (01:30)
[2018-02-28 01:36] LABS: FREE T4 (FREE THYROXINE) 1.09 ng/dL (0.76-1.46)
[2018-02-28 05:19] LABS: ANION GAP 11 mmol/L (5-15); CALCIUM 8.2 mg/dL (8.5-10.1); CHLORIDE 91 mmol/L (98-107); CREATININE 1.63 mg/dL (0.55-1.02)
[2018-02-28] MEDS ORDERED: POTASSIUM CHLORIDE 40 MEQ in SODIUM CHLORIDE 0.9% 500 ML IV ONE (06:00)
[2018-02-28] MEDS: SUCRALFATE 1 GM PO SCH ×2 (07:00→11:00)
[2018-02-28 09:26] LABS: ANION GAP 8 mmol/L (5-15); CALCIUM 7.8 mg/dL (8.5-10.1); CHLORIDE 94 mmol/L (98-107); CREATININE 1.45 mg/dL (0.55-1.02)
[2018-02-28] MEDS: INSULIN GLARGINE 100 UNITS/ML, PEN SQ-INSULIN SCH ×2 (10:00→20:20)
[2018-02-28] MEDS ORDERED: INSULIN LISPRO 100 UNITS/ML, PEN SQ-INSULIN SCH (11:30)
[2018-02-28] MEDS: OXYcodone IR 5MG TABLET PO PRN ×2 (12:13→20:11)
[2018-02-28 12:37] VITALS: BP 148/87
[2018-02-28] MEDS: SUCRALFATE 1 GM TABLET PO SCH ×2 (16:45→20:15)
[2018-02-28] MEDS: INSULIN LISPRO 100 UNITS/ML, PEN SQ-INSULIN SCH ×2 (16:46→20:15)
[2018-02-28 19:45] VITALS: BP_SYST 163; BP_SYST 164; BP_DIAS 94; BP_DIAS 96
[2018-03-01] MEDS: PANTOPRAZOLE 40 MG IV IVPush SCH ×2 (01:11→13:56)
[2018-03-01] MEDS: SODIUM CHLORIDE 0.9% 1,000 ML IV SCH (01:11)
[2018-03-01 02:02] VITALS: BP 128/79
[2018-03-01 05:28] LABS: BASOPHILS # (AUTO) 0.02 x10^3/uL (0-0.1); BASOPHILS % (AUTO) 0 % (0-1); EOSINOPHILS # (AUTO) 0.08 x10^3/uL (0-0.4); EOSINOPHILS % (AUTO) 1 % (1-7); LYMPHOCYTES % (AUTO) 20 % (22-44); MD NO; MEAN CORPUSCULAR HEMOGLOBIN 29.7 pg (27.0-34.8); MEAN CORPUSCULAR HGB CONC 33.3 g/dL (32.4-35.8); MEAN CORPUSCULAR VOLUME 89.2 fL (80-100); MEAN PLATELET VOLUME 9.5 fL (7.4-10.4); MONOCYTES # (AUTO) 0.91 x10^3/uL (0.2-0.8); MONOCYTES % (AUTO) 7 % (2-9); NEUTROPHILS # (AUTO) 9.32 x10^3/uL (1.8-6.8); NEUTROPHILS % (AUTO) 73 % (42-75); PLATELET COUNT 283 x10^3/uL (130-400); RED BLOOD COUNT 4.17 x10^6/uL (3.82-5.3)
[2018-03-01 05:36] LABS: ALANINE AMINOTRANSFERASE 22 U/L (12-78); ALBUMIN 2.8 g/dL (3.4-5.0); ANION GAP 10 mmol/L (5-15); CHLORIDE 101 mmol/L (98-107); CREATININE 0.73 mg/dL (0.55-1.02)
[2018-03-01 05:38] LABS: ALKALINE PHOSPHATASE 104 U/L (45-117); BILIRUBIN,TOTAL 0.2 mg/dL (0.2-1.0); TOTAL PROTEIN 6.5 g/dL (6.4-8.2)
[2018-03-01 06:51] VITALS: BP 146/83
[2018-03-01] MEDS: INSULIN LISPRO 100 UNITS/ML, PEN SQ-INSULIN SCH ×3 (07:43→15:52)
[2018-03-01] MEDS: SUCRALFATE 1 GM TABLET PO SCH ×3 (07:43→15:52)
[2018-03-01] MEDS: HEPARIN 5,000 UNITS/ML, 1ML SQ SCH ×2 (07:43→15:53)
[2018-03-01] MEDS: INSULIN GLARGINE 100 UNITS/ML, PEN SQ-INSULIN SCH (09:23)
[2018-03-01] MEDS ORDERED: INSU100I13 SQ-INSULIN (10:39)
[2018-03-01] MEDS ORDERED: SUCR1ORA5 PO (10:39)
[2018-03-01 13:04] VITALS: BP 158/90
== END 2018-03-01 16:11 | disposition home or self-care (01) | DRG 637 ==
LOC: ED 02-28 00:22 → EDIP 02-28 00:48 → 3NE 02-28 11:27
PROVIDERS: ADMIT Internal Medicine; ATTEND Internal Medicine
DX: E10.10 Type 1 diabetes mellitus with ketoacidosis without coma (principal); K85.00 Idiopathic acute pancreatitis without necrosis or infection; N17.0 Acute kidney failure with tubular necrosis; E87.1 Hypo-osmolality and hyponatremia; K22.10 Ulcer of esophagus without bleeding; D64.9 Anemia, unspecified; E10.43 Type 1 diabetes mellitus with diabetic autonomic (poly)neuropathy; E10.649 Type 1 diabetes mellitus with hypoglycemia without coma; D72.828 Other elevated white blood cell count; E86.0 Dehydration; E87.6 Hypokalemia; F17.200 Nicotine dependence, unspecified, uncomplicated; K21.9 Gastro-esophageal reflux disease without esophagitis; K31.84 Gastroparesis; Z79.4 Long term (current) use of insulin; Z87.19 Personal history of other diseases of the digestive system
CPT/HCPCS: 36415; 71045; 74176; 80048; 80053; 80307; 81001; 82010; 82803; 82962; 83036; 83690; 83735; 84100; 84145; 84439; 84443; 84703; 85025; 87040; 87086; 93005; 96361; 96365; 96372; 96375; 99291; G0378; J0696; J1644; J1815; J2405; J2550; J3480; C9113; J7030; J7040; J7050

== ENCOUNTER 2018-04-16 00:11 | Inpatient (IN) | payer MEDICAID ==
[~2018-04-16] VITALS: Ht 162.6 cm; Wt 48.7 kg
[2018-04-16] MEDS ORDERED: SODIUM CHLORIDE 0.9% 1,000 ML IV ONE (00:23)
[2018-04-16] MEDS ORDERED: PROMETHAZINE 25 MG/ML, 1ML IM ONE (00:30)
[2018-04-16] MEDS ORDERED: SODIUM CHLORIDE 0.9% 1,000ML IVBOLUS ONE ×2 (00:30→01:30)
[2018-04-16] MEDS ORDERED: ONDANSETRON 2MG/ML, 2ML IVPush ONE (00:30)
[2018-04-16] MEDS ORDERED: MORPHINE SULFATE 4 MG/ML, 1ML IVPush PRN (00:30)
[2018-04-16 00:42] LABS: PH, VENOUS 7.247 pH (7.320-7.420)
[2018-04-16 00:44] LABS: BASOPHILS # (AUTO) 0.05 x10^3/uL (0-0.1); BASOPHILS % (AUTO) 0 % (0-1); EOSINOPHILS % (AUTO) 0 % (1-7); LYMPHOCYTES # (AUTO) 1.15 x10^3/uL (1-3.4); LYMPHOCYTES % (AUTO) 6 % (22-44); MD NO; MEAN CORPUSCULAR HEMOGLOBIN 30.1 pg (27.0-34.8); MEAN CORPUSCULAR HGB CONC 32.5 g/dL (32.4-35.8); MEAN CORPUSCULAR VOLUME 92.4 fL (80-100); MEAN PLATELET VOLUME 9.9 fL (7.4-10.4); MONOCYTES # (AUTO) 0.58 x10^3/uL (0.2-0.8); MONOCYTES % (AUTO) 3 % (2-9); NEUTROPHILS # (AUTO) 17.33 x10^3/uL (1.8-6.8); NEUTROPHILS % (AUTO) 91 % (42-75); PLATELET COUNT 451 x10^3/uL (130-400); RED BLOOD COUNT 5.26 x10^6/uL (3.82-5.3); RED CELL DISTRIBUTION WIDTH 13.1 % (9.6-15.2)
[2018-04-16 00:57] LABS: ALANINE AMINOTRANSFERASE 38 U/L (12-78); ALBUMIN 3.8 g/dL (3.4-5.0); ANION GAP 31 mmol/L (5-15); CALCIUM 9.4 mg/dL (8.5-10.1); CHLORIDE 79 mmol/L (98-107); CREATININE 1.88 mg/dL (0.55-1.02)
[2018-04-16] MEDS ORDERED: MORPHINE SULFATE 4 MG/ML, 1ML ONE (00:57)
[2018-04-16] MEDS ORDERED: ONDANSETRON 2MG/ML, 2ML ONE (00:57)
[2018-04-16] MEDS ORDERED: PROMETHAZINE 25 MG/ML, 1ML ONE (00:57)
[2018-04-16 01:03] LABS: ALKALINE PHOSPHATASE 114 U/L (45-117); BILIRUBIN,TOTAL 0.7 mg/dL (0.2-1.0); TOTAL PROTEIN 8.5 g/dL (6.4-8.2)
[2018-04-16] MEDS ORDERED: REGULAR INSULIN 62.5 UNITS in SODIUM CHLORIDE 0.9% 249.375 ML IV PRN ×2 (01:05→01:30)
[2018-04-16 01:18] LABS: HEMOGLOBIN A1C 11.6 % (4.2-6.3)
[2018-04-16] MEDS: D5%-0.45% NACL 1,000 ML IV SCH ×2 (01:30→09:26)
[2018-04-16 01:34] LABS: ACETONE, SERUM Large (80mg/dL) mg/dL (Negative)
[2018-04-16 02:09] LABS: MICROSCOPIC NOT IND
[2018-04-16 02:17] LABS: AMPHETAMINE SCREEN, URINE Negative (Negative); BARBITURATE SCREEN, URINE Negative (Negative); BENZODIAZEPINE SCREEN, URINE Negative (Negative); CANNABINOID SCREEN, URINE Negative (Negative); COCAINE SCREEN, URINE Negative (Negative); METHADONE SCREEN, URINE Negative (Negative); OPIATE SCREEN, URINE Negative (Negative)
[2018-04-16 02:20] LABS: CULTURE INDICATED? NO
[2018-04-16] MEDS: SODIUM CHLORIDE 0.9% 1,000 ML IV SCH ×3 (02:33→09:26)
[2018-04-16 04:50] LABS: ANION GAP 30 mmol/L (5-15); CHLORIDE 92 mmol/L (98-107); CREATININE 1.62 mg/dL (0.55-1.02)
[2018-04-16] MEDS: ENOXAPARIN 40 MG/0.4 ML SQ SCH (08:14)
[2018-04-16] MEDS ORDERED: ENOXAPARIN 30 MG/0.3 ML SQ SCH (09:00)
[2018-04-16 09:42] LABS: ANION GAP 17 mmol/L (5-15); CALCIUM 7.7 mg/dL (8.5-10.1); CHLORIDE 105 mmol/L (98-107); CREATININE 1.31 mg/dL (0.55-1.02)
[2018-04-16] MEDS: INSULIN LISPRO 100 UNITS/ML, PEN SQ-INSULIN SCH ×3 (10:40→20:59)
[2018-04-16] MEDS: INSULIN GLARGINE 100 UNITS/ML, PEN SQ-INSULIN SCH ×2 (10:40→21:33)
[2018-04-16 14:52] VITALS: BP 173/90
[2018-04-16] MEDS: ONDANSETRON 2MG/ML, 2ML IVPush PRN ×2 (15:29→21:37)
[2018-04-16 19:46] VITALS: BP 160/58
[2018-04-17 01:28] VITALS: BP 149/60
[2018-04-17] MEDS: SODIUM CHLORIDE 0.9% 1,000 ML IV SCH ×5 (01:30→21:46)
[2018-04-17 05:35] LABS: ANION GAP 23 mmol/L (5-15); CALCIUM 7.4 mg/dL (8.5-10.1); CHLORIDE 96 mmol/L (98-107); CREATININE 0.93 mg/dL (0.55-1.02)
[2018-04-17] MEDS: ONDANSETRON 2MG/ML, 2ML IVPush PRN ×2 (05:48→23:00)
[2018-04-17 05:52] LABS: MEAN CORPUSCULAR HEMOGLOBIN 29.9 pg (27.0-34.8); MEAN CORPUSCULAR HGB CONC 33.3 g/dL (32.4-35.8); MEAN CORPUSCULAR VOLUME 89.9 fL (80-100); PLATELET COUNT 422 x10^3/uL (130-400); RED BLOOD COUNT 4.65 x10^6/uL (3.82-5.3); RED CELL DISTRIBUTION WIDTH 13.7 % (9.6-15.2)
[2018-04-17 06:42] LABS: MD YES
[2018-04-17 06:44] LABS: BAND#(MANUAL) 0.51 x10^3/uL; BANDS%(MANUAL) 2 % (0-7); BASOS#(MANUAL) 0.25 x10^3/uL (0-0.1); BASOS% (MANUAL) 1 % (0-1); LYMPH#(MANUAL) 1.01 x10^3/uL (1-3.4); LYMPHS% (MANUAL) 4 % (22-44); MONOS#(MANUAL) 0.76 x10^3/uL (0.3-2.7); MONOS% (MANUAL) 3 % (2-9); SEG#(MANUAL) 22.77 x10^3/uL (1.8-6.8); SEGS% (MANUAL) 90 % (42-75)
[2018-04-17 06:46] LABS: <PLATELET ESTIMATE> INCREASED; <RBC MORPHOLOGY> NORMAL; LARGE PLATELETS 1+
[2018-04-17 07:24] VITALS: BP 150/94
[2018-04-17] MEDS: INSULIN LISPRO 100 UNITS/ML, PEN SQ-INSULIN SCH ×5 (07:44→21:33)
[2018-04-17] MEDS: ENOXAPARIN 40 MG/0.4 ML SQ SCH (09:15)
[2018-04-17] MEDS: INSULIN GLARGINE 100 UNITS/ML, PEN SQ-INSULIN SCH (09:15)
[2018-04-17] MEDS ORDERED: SUCRALFATE 1 GM/10 ML UDC PO SCH (12:30)
[2018-04-17 13:20] LABS: ACETONE, SERUM Large (80mg/dL) mg/dL (Negative)
[2018-04-17 13:23] LABS: ALBUMIN 3.3 g/dL (3.4-5.0); ANION GAP 23 mmol/L (5-15); CALCIUM 7.7 mg/dL (8.5-10.1); CHLORIDE 99 mmol/L (98-107)
[2018-04-17] MEDS ORDERED: D5%-0.45% NACL 1,000 ML IV SCH (13:29)
[2018-04-17] MEDS ORDERED: PANTOPRAZOLE 40 MG IV IVPush SCH (13:30)
[2018-04-17] MEDS ORDERED: REGULAR INSULIN 62.5 UNITS in SODIUM CHLORIDE 0.9% 249.375 ML IV PRN (13:30)
[2018-04-17 14:03] VITALS: BP 127/82
[2018-04-17 15:09] VITALS: BP 174/100
[2018-04-17] MEDS ORDERED: POTASSIUM PHOSPHATE 22 MEQ in SODIUM CHLORIDE 0.9% 500 ML IV ONE (15:30)
[2018-04-17 16:17] LABS: ANION GAP 16 mmol/L (5-15); CALCIUM 8.1 mg/dL (8.5-10.1); CHLORIDE 101 mmol/L (98-107); CREATININE 1.03 mg/dL (0.55-1.02)
[2018-04-17 16:39] LABS: HEMOGLOBIN A1C 11.6 % (4.2-6.3)
[2018-04-17 19:50] VITALS: BP 139/81
[2018-04-17] MEDS ORDERED: INSULIN GLARGINE 100 UNITS/ML, PEN SQ-INSULIN SCH (21:00)
[2018-04-18] VITALS: BP 156/94
[2018-04-18] MEDS: INSULIN LISPRO 100 UNITS/ML, PEN SQ-INSULIN SCH ×5 (02:00→23:27)
[2018-04-18] MEDS ORDERED: DEXTROSE 4 GM TAB.CHEW PO PRN (02:30)
[2018-04-18] MEDS ORDERED: DEXTROSE 50%, 50ML SYRINGE IVPush PRN (02:30)
[2018-04-18] MEDS ORDERED: GLUCAGON 1 MG IM PRN (02:30)
[2018-04-18 02:50] LABS: MEAN CORPUSCULAR HEMOGLOBIN 30.3 pg (27.0-34.8); MEAN CORPUSCULAR HGB CONC 33.9 g/dL (32.4-35.8); MEAN CORPUSCULAR VOLUME 89.4 fL (80-100); MEAN PLATELET VOLUME 8.1 fL (7.4-10.4); PLATELET COUNT 358 x10^3/uL (130-400); RED BLOOD COUNT 3.81 x10^6/uL (3.82-5.3); RED CELL DISTRIBUTION WIDTH 13.1 % (9.6-15.2)
[2018-04-18 02:53] LABS: MD YES
[2018-04-18 02:56] LABS: ANION GAP 18 mmol/L (5-15); CALCIUM 6.6 mg/dL (8.5-10.1); CHLORIDE 100 mmol/L (98-107); CREATININE 0.56 mg/dL (0.55-1.02)
[2018-04-18 03:03] LABS: LYMPH#(MANUAL) 1.62 x10^3/uL (1-3.4); LYMPHS% (MANUAL) 8 % (22-44); MONOS#(MANUAL) 1.41 x10^3/uL (0.3-2.7); MONOS% (MANUAL) 7 % (2-9); SEG#(MANUAL) 17.17 x10^3/uL (1.8-6.8); SEGS% (MANUAL) 85 % (42-75)
[2018-04-18 03:04] LABS: <PLATELET ESTIMATE> ADEQUATE; <PLT MORPHOLOGY> NORMAL PLT MORPH; <RBC MORPHOLOGY> NORMAL
[2018-04-18 03:17] VITALS: BP 143/84
[2018-04-18] MEDS ORDERED: POTASSIUM CHLORIDE 20 MEQ TAB.ER.PRT PO SCH (04:00)
[2018-04-18] MEDS: SODIUM CHLORIDE 0.9% 1,000 ML IV SCH ×4 (05:50→23:26)
[2018-04-18 07:02] LABS: ANION GAP 12 mmol/L (5-15); CALCIUM 6.7 mg/dL (8.5-10.1); CHLORIDE 98 mmol/L (98-107)
[2018-04-18] MEDS: ENOXAPARIN 40 MG/0.4 ML SQ SCH (09:00)
[2018-04-18] MEDS: SODIUM CHLORIDE FLUSH 10ML SYR IVF SCH ×2 (09:14→21:44)
[2018-04-18] MEDS: AMPICILLIN/SULBACTAM 3 GM in SODIUM CHLORIDE 0.9% 100 ML IV SCH ×3 (09:14→22:02)
[2018-04-18] MEDS ORDERED: POTASSIUM CHLORIDE 10% 40 MEQ/30 ML UDC PO ONE (10:30)
[2018-04-18] MEDS ORDERED: INSULIN LISPRO 100 UNITS/ML, PEN SQ-INSULIN SCH (11:00)
[2018-04-18] MEDS ORDERED: ERGOCALCIFEROL 50,000 UNIT CAPSULE PO SCH (11:30)
[2018-04-18] MEDS ORDERED: CALCIUM CHLORIDE 13.6 MEQ in SODIUM CHLORIDE 0.9% 100 ML IV ONE (11:30)
[2018-04-18] MEDS ORDERED: PANTOPROZOLE 40MG TABLET PO SCH (11:30)
[2018-04-18] MEDS: PANTOPRAZOLE 40 MG IV IVPush SCH ×2 (11:54→23:27)
[2018-04-18 14:45] VITALS: BP 115/70
[2018-04-18 20:04] VITALS: BP 147/85
[2018-04-18] MEDS ORDERED: INSULIN GLARGINE 100 UNITS/ML, PEN SQ-INSULIN SCH (21:00)
[2018-04-18] MEDS: INSULIN GLARGINE 100 UNITS/ML, PEN SQ-INSULIN SCH (21:50)
[2018-04-19] MEDS: INSULIN LISPRO 100 UNITS/ML, PEN SQ-INSULIN SCH ×5 (02:45→21:32)
[2018-04-19] MEDS: AMPICILLIN/SULBACTAM 3 GM in SODIUM CHLORIDE 0.9% 100 ML IV SCH ×4 (04:32→21:32)
[2018-04-19 05:52] LABS: BASOPHILS # (AUTO) 0.08 x10^3/uL (0-0.1); BASOPHILS % (AUTO) 1 % (0-1); EOSINOPHILS # (AUTO) 0.02 x10^3/uL (0-0.4); EOSINOPHILS % (AUTO) 0 % (1-7); LYMPHOCYTES # (AUTO) 2.11 x10^3/uL (1-3.4); LYMPHOCYTES % (AUTO) 19 % (22-44); MD NO; MEAN CORPUSCULAR HEMOGLOBIN 29.8 pg (27.0-34.8); MEAN CORPUSCULAR HGB CONC 33.6 g/dL (32.4-35.8); MEAN CORPUSCULAR VOLUME 88.9 fL (80-100); MEAN PLATELET VOLUME 8.8 fL (7.4-10.4); MONOCYTES # (AUTO) 0.88 x10^3/uL (0.2-0.8); MONOCYTES % (AUTO) 8 % (2-9); NEUTROPHILS # (AUTO) 7.86 x10^3/uL (1.8-6.8); NEUTROPHILS % (AUTO) 72 % (42-75); PLATELET COUNT 215 x10^3/uL (130-400); RED BLOOD COUNT 3.86 x10^6/uL (3.82-5.3); RED CELL DISTRIBUTION WIDTH 12.9 % (9.6-15.2)
[2018-04-19 05:58] LABS: CHLORIDE 103 mmol/L (98-107)
[2018-04-19 06:02] LABS: ANION GAP 9 mmol/L (5-15); CALCIUM 7.6 mg/dL (8.5-10.1)
[2018-04-19 07:14] VITALS: BP 122/74
[2018-04-19] MEDS: POTASSIUM CHLORIDE 20 MEQ TAB.ER.PRT PO SCH ×2 (07:50→17:00)
[2018-04-19] MEDS: ENOXAPARIN 40 MG/0.4 ML SQ SCH (09:00)
[2018-04-19] MEDS: INSULIN GLARGINE 100 UNITS/ML, PEN SQ-INSULIN SCH ×2 (09:38→21:31)
[2018-04-19] MEDS: SODIUM CHLORIDE FLUSH 10ML SYR IVF SCH ×2 (09:38→21:31)
[2018-04-19] MEDS: SODIUM CHLORIDE 0.9% 1,000 ML IV SCH ×2 (11:10→21:32)
[2018-04-19] MEDS: PANTOPRAZOLE 40 MG IV IVPush SCH (11:59)
[2018-04-19 12:15] VITALS: BP 130/81
[2018-04-19 19:34] VITALS: BP 123/69
[2018-04-19] MEDS: ONDANSETRON 2MG/ML, 2ML IVPush PRN (21:40)
[2018-04-20] MEDS: PANTOPRAZOLE 40 MG IV IVPush SCH (00:28)
[2018-04-20 02:45] VITALS: BP 145/88
[2018-04-20] MEDS: INSULIN LISPRO 100 UNITS/ML, PEN SQ-INSULIN SCH ×2 (04:29)
[2018-04-20] MEDS: AMPICILLIN/SULBACTAM 3 GM in SODIUM CHLORIDE 0.9% 100 ML IV SCH (04:29)
[2018-04-20 05:18] LABS: ALBUMIN 2.1 g/dL (3.4-5.0); ANION GAP 9 mmol/L (5-15); CALCIUM 7.5 mg/dL (8.5-10.1); CHLORIDE 103 mmol/L (98-107); CREATININE 0.61 mg/dL (0.55-1.02)
[2018-04-20] MEDS: SODIUM CHLORIDE 0.9% 1,000 ML IV SCH (05:57)
[2018-04-20] MEDS ORDERED: POTASSIUM PHOSPHATE 44 MEQ in SODIUM CHLORIDE 0.9% 500 ML IV ONE (06:30)
[2018-04-20] MEDS ORDERED: MAGNESIUM SULFATE PMX 2GM/50ML 50 ML IV ONE (06:30)
== END 2018-04-20 08:04 | disposition left against medical advice (07) | DRG 637 ==
LOC: ED 00:32 → EDIP 01:05 → CCU 02:26 → 3NE 14:08 → CCU 04-17 14:40 → 4NOR 04-18 14:30
PROVIDERS: ADMIT Hospitalist; ATTEND Hospitalist
DX: E10.10 Type 1 diabetes mellitus with ketoacidosis without coma (principal); E43 Unspecified severe protein-calorie malnutrition; N17.9 Acute kidney failure, unspecified; N25.81 Secondary hyperparathyroidism of renal origin; Z68.1 Body mass index [BMI] 19.9 or less, adult; D50.9 Iron deficiency anemia, unspecified; D72.829 Elevated white blood cell count, unspecified; E10.43 Type 1 diabetes mellitus with diabetic autonomic (poly)neuropathy; E55.9 Vitamin D deficiency, unspecified; E86.0 Dehydration; E87.5 Hyperkalemia; K21.9 Gastro-esophageal reflux disease without esophagitis; K31.84 Gastroparesis; Z91.14 Patient's other noncompliance with medication regimen; Z87.19 Personal history of other diseases of the digestive system; Z87.11 Personal history of peptic ulcer disease; Z53.21 Procedure and treatment not carried out due to patient leaving prior to being seen by health care provider; F17.200 Nicotine dependence, unspecified, uncomplicated
CPT/HCPCS: 36415; 71045; 80048; 80053; 80307; 81003; 82010; 82040; 82306; 82330; 82803; 82947; 82962; 83036; 83690; 83735; 83970; 84100; 84703; 85025; 87081; 96372; 96374; 96375; G0378; J0295; J1815; J2405; J2550; C9113; J3475; J7030; J7040; J7050

== ENCOUNTER 2018-05-31 14:35 | Inpatient (IN) | payer MEDICAID ==
[~2018-05-31] VITALS: Ht 162.6 cm; Wt 50.0 kg
[2018-05-31] MEDS ORDERED: SODIUM CHLORIDE FLUSH 10ML SYR IVF ONE (15:00)
[2018-05-31] MEDS ORDERED: FAMOTIDINE 20 MG/2 ML IVP ONE (15:00)
[2018-05-31] MEDS ORDERED: ONDANSETRON 2MG/ML, 2ML IVPush ONE (15:00)
[2018-05-31 15:14] LABS: PH, VENOUS 7.283 pH (7.320-7.420)
[2018-05-31 15:22] LABS: MEAN CORPUSCULAR HEMOGLOBIN 29.3 pg (27.0-34.8); MEAN CORPUSCULAR HGB CONC 32.7 g/dL (32.4-35.8); MEAN CORPUSCULAR VOLUME 89.4 fL (80-100); MEAN PLATELET VOLUME 10.2 fL (7.4-10.4); PLATELET COUNT 560 x10^3/uL (130-400); RED BLOOD COUNT 4.84 x10^6/uL (3.82-5.3); RED CELL DISTRIBUTION WIDTH 13.9 % (9.6-15.2)
[2018-05-31] MEDS ORDERED: ONDANSETRON 2MG/ML, 2ML ONE (15:24)
[2018-05-31] MEDS ORDERED: FAMOTIDINE 20 MG/2 ML ONE (15:24)
[2018-05-31 15:27] LABS: ALANINE AMINOTRANSFERASE 20 U/L (12-78); ALBUMIN 3.7 g/dL (3.4-5.0); ANION GAP 24 mmol/L (5-15); CHLORIDE 70 mmol/L (98-107); CREATININE 1.98 mg/dL (0.55-1.02)
[2018-05-31 15:28] LABS: MD YES; O2 FLOW ROOM AIR L/min
[2018-05-31 15:32] LABS: ALKALINE PHOSPHATASE 119 U/L (45-117); BILIRUBIN,TOTAL 0.7 mg/dL (0.2-1.0)
[2018-05-31 15:35] LABS: ACETONE, SERUM Large (80mg/dL) mg/dL (Negative)
--- NOTE | 2018-05-31 15:36 | NUR ---
Pt presents for nausea and vomiting today with upper abd pain. Pt states seen here multiple times for similar with admissions for DKA.
[2018-05-31] MEDS ORDERED: SODIUM CHLORIDE 0.9% 1,000ML IVBOLUS ONE (16:00)
[2018-05-31 16:02] LABS: BAND#(MANUAL) 0.46 x10^3/uL; BANDS%(MANUAL) 2 % (0-7); LYMPH#(MANUAL) 0.46 x10^3/uL (1-3.4); LYMPHS% (MANUAL) 2 % (22-44); MONOS#(MANUAL) 0.46 x10^3/uL (0.3-2.7); MONOS% (MANUAL) 2 % (2-9); SEG#(MANUAL) 21.62 x10^3/uL (1.8-6.8); SEGS% (MANUAL) 94 % (42-75)
[2018-05-31 16:03] LABS: <PLATELET ESTIMATE> INCREASED; <RBC MORPHOLOGY> NORMAL; LARGE PLATELETS 1+
[2018-05-31] MEDS ORDERED: ONDANSETRON 2MG/ML, 2ML IVPush PRN (16:30)
[2018-05-31] MEDS ORDERED: ACETAMINOPHEN 325 MG TABLET PO PRN (16:30)
[2018-05-31] MEDS: SODIUM CHLORIDE 0.9% 1,000 ML IV SCH ×2 (16:30→20:10)
[2018-05-31] MEDS ORDERED: LIDODERM 5% PATCH TD PRN (16:30)
[2018-05-31] MEDS ORDERED: PROMETHAZINE 25 MG/ML, 1ML ONE (16:36)
[2018-05-31] MEDS ORDERED: ACETAMINOPHEN 500 MG TABLET ONE (16:53)
[2018-05-31 17:00] LABS: MICROSCOPIC AUTO
[2018-05-31] MEDS ORDERED: PROMETHAZINE 25 MG/ML, 1ML IM ONE (17:00)
[2018-05-31] MEDS: REGULAR INSULIN 62.5 UNITS in SODIUM CHLORIDE 0.9% 249.375 ML IV PRN ×3 (17:00→19:21)
[2018-05-31] MEDS ORDERED: ACETAMINOPHEN 500 MG TABLET PO ONE (17:00)
[2018-05-31 17:02] LABS: CULTURE INDICATED? NO
[2018-05-31 19:06] LABS: ANION GAP 23 mmol/L (5-15); CALCIUM 8.4 mg/dL (8.5-10.1); CHLORIDE 80 mmol/L (98-107); CREATININE 1.69 mg/dL (0.55-1.02)
[2018-05-31 20:19] LABS: HCG UR SG 1.029 (1.003-1.030)
[2018-05-31] MEDS: HEPARIN 5,000 UNITS/ML, 1ML SQ SCH ×2 (21:00→21:06)
[2018-05-31] MEDS: SUCRALFATE 1 GM/10 ML UDC PO SCH (21:06)
[2018-05-31 22:43] VITALS: BP 112/70
[2018-05-31 23:16] LABS: ANION GAP 21 mmol/L (5-15); CALCIUM 7.8 mg/dL (8.5-10.1); CHLORIDE 82 mmol/L (98-107); CREATININE 1.72 mg/dL (0.55-1.02)
[2018-06-01] MEDS ORDERED: D5%-0.45% NACL 1,000 ML IV PRN (01:30)
[2018-06-01 03:27] LABS: MEAN CORPUSCULAR HEMOGLOBIN 28.9 pg (27.0-34.8); MEAN CORPUSCULAR HGB CONC 33.9 g/dL (32.4-35.8); MEAN CORPUSCULAR VOLUME 85.5 fL (80-100); MEAN PLATELET VOLUME 9.2 fL (7.4-10.4); PLATELET COUNT 500 x10^3/uL (130-400); RED BLOOD COUNT 4.39 x10^6/uL (3.82-5.3); RED CELL DISTRIBUTION WIDTH 13.4 % (9.6-15.2)
[2018-06-01 03:35] LABS: ALANINE AMINOTRANSFERASE 17 U/L (12-78); ALBUMIN 3.1 g/dL (3.4-5.0); ANION GAP 16 mmol/L (5-15); BASOPHILS % (AUTO) 0 % (0-1); CALCIUM 7.7 mg/dL (8.5-10.1); CHLORIDE 84 mmol/L (98-107); CREATININE 1.43 mg/dL (0.55-1.02); EOSINOPHILS # (AUTO) 0.01 x10^3/uL (0-0.4); EOSINOPHILS % (AUTO) 0 % (1-7); LYMPHOCYTES # (AUTO) 2.92 x10^3/uL (1-3.4); LYMPHOCYTES % (AUTO) 12 % (22-44); MD SCAN; MONOCYTES # (AUTO) 2.06 x10^3/uL (0.2-0.8); MONOCYTES % (AUTO) 9 % (2-9); NEUTROPHILS % (AUTO) 78 % (42-75)
[2018-06-01 03:37] LABS: ALKALINE PHOSPHATASE 97 U/L (45-117); BILIRUBIN,TOTAL 0.6 mg/dL (0.2-1.0); TOTAL PROTEIN 6.5 g/dL (6.4-8.2)
[2018-06-01 04:41] LABS: HEMOGLOBIN A1C 9.7 % (4.2-6.3)
[2018-06-01] MEDS: HEPARIN 5,000 UNITS/ML, 1ML SQ SCH ×2 (05:10→13:00)
[2018-06-01] MEDS: SODIUM CHLORIDE 0.9% 1,000 ML IV SCH (06:07)
[2018-06-01] MEDS ORDERED: D5%-0.9% NACL 1,000 ML IV PRN (06:30)
[2018-06-01 08:01] LABS: ANION GAP 14 mmol/L (5-15); CALCIUM 8.5 mg/dL (8.5-10.1); CHLORIDE 86 mmol/L (98-107); CREATININE 1.38 mg/dL (0.55-1.02)
[2018-06-01] MEDS: PANTOPRAZOLE 40 MG IV IVPush SCH (08:14)
[2018-06-01] MEDS: SUCRALFATE 1 GM/10 ML UDC PO SCH ×4 (08:14→22:51)
[2018-06-01] MEDS: REGULAR INSULIN 62.5 UNITS in SODIUM CHLORIDE 0.9% 249.375 ML IV PRN (08:42)
[2018-06-01 11:44] LABS: AMPHETAMINE SCREEN, URINE Negative (Negative); BARBITURATE SCREEN, URINE Negative (Negative); BENZODIAZEPINE SCREEN, URINE Negative (Negative); CANNABINOID SCREEN, URINE Negative (Negative); COCAINE SCREEN, URINE Negative (Negative); METHADONE SCREEN, URINE Negative (Negative); OPIATE SCREEN, URINE Negative (Negative)
[2018-06-01 12:21] LABS: ANION GAP 7 mmol/L (5-15); CALCIUM 7.6 mg/dL (8.5-10.1); CHLORIDE 97 mmol/L (98-107)
[2018-06-01] MEDS ORDERED: DEXTROSE 50%, 50ML SYRINGE ONE (13:11)
[2018-06-01] MEDS: INSULIN GLARGINE 100 UNITS/ML, PEN SQ-INSULIN SCH ×2 (13:16→22:51)
[2018-06-01] MEDS ORDERED: DEXTROSE 50%, 50ML SYRINGE IVPush ONE (13:30)
[2018-06-01] MEDS: INSULIN LISPRO 100 UNITS/ML, PEN SQ-INSULIN SCH ×2 (13:30→22:40)
[2018-06-01] MEDS ORDERED: DEXTROSE 4 GM TAB.CHEW PO PRN (15:30)
[2018-06-01] MEDS ORDERED: GLUCAGON 1 MG IM PRN (15:30)
[2018-06-01] MEDS ORDERED: POTASSIUM CHLORIDE 20 MEQ TAB.ER.PRT PO ONE (15:30)
[2018-06-01] MEDS ORDERED: DEXTROSE 50%, 50ML SYRINGE IVPush PRN (15:30)
[2018-06-01] MEDS: RIVAROXABAN 15 MG TABLET PO SCH (18:32)
[2018-06-01 20:00] VITALS: BP 116/72
[2018-06-01] MEDS: SODIUM CHLORIDE FLUSH 10ML SYR IVF SCH (22:41)
[2018-06-02 02:00] VITALS: BP 124/74
[2018-06-02] MEDS: INSULIN LISPRO 100 UNITS/ML, PEN SQ-INSULIN SCH ×4 (04:15→22:47)
[2018-06-02 04:53] LABS: BASOPHILS # (AUTO) 0.03 x10^3/uL (0-0.1); BASOPHILS % (AUTO) 0 % (0-1); EOSINOPHILS # (AUTO) 0.03 x10^3/uL (0-0.4); EOSINOPHILS % (AUTO) 0 % (1-7); LYMPHOCYTES # (AUTO) 2.28 x10^3/uL (1-3.4); LYMPHOCYTES % (AUTO) 18 % (22-44); MD NO; MEAN CORPUSCULAR HEMOGLOBIN 29.1 pg (27.0-34.8); MEAN CORPUSCULAR HGB CONC 33.5 g/dL (32.4-35.8); MEAN CORPUSCULAR VOLUME 86.8 fL (80-100); MEAN PLATELET VOLUME 9.2 fL (7.4-10.4); MONOCYTES # (AUTO) 0.99 x10^3/uL (0.2-0.8); MONOCYTES % (AUTO) 8 % (2-9); NEUTROPHILS # (AUTO) 9.31 x10^3/uL (1.8-6.8); NEUTROPHILS % (AUTO) 74 % (42-75); PLATELET COUNT 429 x10^3/uL (130-400); RED BLOOD COUNT 3.76 x10^6/uL (3.82-5.3); RED CELL DISTRIBUTION WIDTH 13.8 % (9.6-15.2)
[2018-06-02 05:01] LABS: CHLORIDE 106 mmol/L (98-107)
[2018-06-02 05:07] LABS: ANION GAP 5 mmol/L (5-15); CALCIUM 7.6 mg/dL (8.5-10.1)
[2018-06-02] MEDS: SUCRALFATE 1 GM/10 ML UDC PO SCH ×4 (06:48→22:36)
[2018-06-02 08:20] VITALS: BP 163/82
[2018-06-02] MEDS: SODIUM CHLORIDE FLUSH 10ML SYR IVF SCH ×2 (09:17→22:50)
[2018-06-02] MEDS: PANTOPRAZOLE 40 MG IV IVPush SCH (09:17)
[2018-06-02] MEDS: RIVAROXABAN 15 MG TABLET PO SCH ×2 (09:17→16:08)
[2018-06-02] MEDS: INSULIN GLARGINE 100 UNITS/ML, PEN SQ-INSULIN SCH ×2 (11:22→22:48)
[2018-06-02 14:48] VITALS: BP 105/70
[2018-06-02] MEDS ORDERED: SODIUM PHOSPHATE 20 MMOL in SODIUM CHLORIDE 0.9% 500 ML IV ONE (17:00)
[2018-06-02 20:00] VITALS: BP 112/69
[2018-06-03 02:00] VITALS: BP 157/89
[2018-06-03] MEDS: INSULIN LISPRO 100 UNITS/ML, PEN SQ-INSULIN SCH (04:39)
[2018-06-03 06:55] VITALS: BP 127/75
[2018-06-03] MEDS: SUCRALFATE 1 GM/10 ML UDC PO SCH ×2 (08:06→11:39)
[2018-06-03] MEDS: RIVAROXABAN 15 MG TABLET PO SCH (08:06)
[2018-06-03] MEDS: PANTOPRAZOLE 40 MG IV IVPush SCH (08:06)
[2018-06-03] MEDS: SODIUM CHLORIDE FLUSH 10ML SYR IVF SCH (08:06)
[2018-06-03] MEDS ORDERED: INSULIN LISPRO 100 UNITS/ML, PEN SQ-INSULIN SCH (11:00)
[2018-06-03] MEDS ORDERED: INSULIN GLARGINE 100 UNITS/ML, PEN SQ-INSULIN SCH (11:30)
[2018-06-03 12:12] VITALS: BP 146/92
== END 2018-06-03 12:23 | disposition left against medical advice (07) | DRG 638 ==
LOC: ED 16:10 → EDIP 17:10 → CCU 17:24 → 3NW 06-01 18:40
PROVIDERS: ADMIT Hospitalist; ATTEND Internal Medicine
DX: E10.10 Type 1 diabetes mellitus with ketoacidosis without coma (principal); I82.C11 Acute embolism and thrombosis of right internal jugular vein; N17.9 Acute kidney failure, unspecified; E87.1 Hypo-osmolality and hyponatremia; E10.43 Type 1 diabetes mellitus with diabetic autonomic (poly)neuropathy; K31.84 Gastroparesis; K21.9 Gastro-esophageal reflux disease without esophagitis; D72.829 Elevated white blood cell count, unspecified; Z72.0 Tobacco use; Z79.4 Long term (current) use of insulin; Z87.19 Personal history of other diseases of the digestive system; Z53.21 Procedure and treatment not carried out due to patient leaving prior to being seen by health care provider
CPT/HCPCS: 36415; 85610; 85613; 85670; 85730; 85732; 86146; 86147; 87806; 99291; J3490; J7042; 70450; 71045; 80048; 80053; 80307; 81001; 81025; 81240; 81241; 82010; 82803; 82947; 82962; 83036; 83690; 83735; 84100; 84703; 85025; 85300; 85301; 85303; 85306; 85598; 86803; 87081; 96372; 96374; 96375; G0378; J1644; J1815; J2405; J2550; C9113; G0475; J7030; J7040; J7050

== ENCOUNTER 2018-07-22 10:29 | Inpatient (IN) | payer MEDICAID ==
[~2018-07-22] VITALS: Ht 162.6 cm; Wt 43.7 kg
--- NOTE | 2018-07-22 10:45 | NUR ---
BLOOD SUGAR DONE-HIGH
--- NOTE | 2018-07-22 10:59 | NUR ---
PT REPORTS VOMITING FOR 3 DAYS AND WEAKNESS. REPORTS COFFEE GROUND VOMIT TODAY. PT IS ALERT AND ORIENTED. PT IS CONNECTED TO THE MONITOR. CALL LIGHT WITHIN REACH.
[2018-07-22] MEDS ORDERED: ONDANSETRON 2MG/ML, 2ML ONE (11:07)
--- NOTE | 2018-07-22 11:10 | NUR ---
PER MD GIVE 4MG IV ZOFRAN NOW. PT MEDICATED PER ORDER.
[2018-07-22] MEDS ORDERED: PANTOPRAZOLE 80 MG in SODIUM CHLORIDE 0.9% 100 ML IV SCH ×2 (11:12→15:30)
[2018-07-22] MEDS ORDERED: SODIUM CHLORIDE 0.9% 1,000 ML IV ONE (11:12)
[2018-07-22] MEDS ORDERED: PANTOPRAZOLE 80 MG in SODIUM CHLORIDE 0.9% 50 ML IVPB ONE (11:12)
--- NOTE | 2018-07-22 11:26 | NUR ---
1112 late entry. Charge nurse informed of the need for US IV.
--- NOTE | 2018-07-22 11:27 | NUR ---
lab at bedside.
[2018-07-22] MEDS ORDERED: SODIUM CHLORIDE 0.9% 1,000ML IVBOLUS ONE (11:30)
[2018-07-22] MEDS ORDERED: ONDANSETRON 2MG/ML, 2ML IVPush ONE (11:30)
--- NOTE | 2018-07-22 11:43 | NUR ---
Report given to Katja.
[2018-07-22 11:52] LABS: PH, VENOUS 7.322 pH (7.320-7.420)
[2018-07-22 11:58] LABS: ALANINE AMINOTRANSFERASE 19 U/L (12-78); ALBUMIN 3.6 g/dL (3.4-5.0); ANION GAP 35 mmol/L (5-15); CALCIUM 8.5 mg/dL (8.5-10.1); CHLORIDE 71 mmol/L (98-107); CREATININE 2.51 mg/dL (0.55-1.02)
[2018-07-22 12:00] LABS: ALKALINE PHOSPHATASE 104 U/L (45-117); BILIRUBIN,TOTAL 0.9 mg/dL (0.2-1.0); TOTAL PROTEIN 7.6 g/dL (6.4-8.2)
[2018-07-22 12:07] LABS: MEAN CORPUSCULAR HEMOGLOBIN 27.9 pg (27.0-34.8); MEAN CORPUSCULAR HGB CONC 33.7 g/dL (32.4-35.8); MEAN CORPUSCULAR VOLUME 82.8 fL (80-100); MEAN PLATELET VOLUME 9.8 fL (7.4-10.4); PLATELET COUNT 551 x10^3/uL (130-400); RED BLOOD COUNT 4.93 x10^6/uL (3.82-5.3); RED CELL DISTRIBUTION WIDTH 15.1 % (9.6-15.2)
[2018-07-22 12:13] LABS: INTERNATIONAL NORMALIZED RATIO 1.02 (0.93-1.1); PROTHROMBIN TIME 10.7 Seconds (9.6-11.5)
[2018-07-22] MEDS ORDERED: INSULIN REGULAR 100 UNITS/ML, 3ML VIAL IVPush ONE (12:30)
[2018-07-22] MEDS ORDERED: INSULIN REGULAR 100 UNITS/ML, 3ML VIAL ONE (12:39)
[2018-07-22 12:45] LABS: ACETONE, SERUM Large (80mg/dL) mg/dL (Negative)
[2018-07-22 12:56] LABS: BASOPHILS # (AUTO) 0.03 x10^3/uL (0-0.1); BASOPHILS % (AUTO) 0 % (0-1); EOSINOPHILS % (AUTO) 0 % (1-7); LYMPHOCYTES # (AUTO) 1.56 x10^3/uL (1-3.4); LYMPHOCYTES % (AUTO) 6 % (22-44); MD SCAN; MONOCYTES % (AUTO) 5 % (2-9); NEUTROPHILS # (AUTO) 21.49 x10^3/uL (1.8-6.8); NEUTROPHILS % (AUTO) 89 % (42-75)
--- NOTE | 2018-07-22 14:33 | NUR ---
RECEIVED REPORT FROM KAREN GREENE.
--- NOTE | 2018-07-22 14:35 | NUR ---
PT RESTING IN BED.
--- NOTE | 2018-07-22 15:15 | NUR ---
DEFTU AT BEDSIDE TO ASSESS PT, AWAITING ICU BED, WCTM
[2018-07-22 15:24] LABS: MICROSCOPIC NOT IND
[2018-07-22 15:29] LABS: CULTURE INDICATED? NO
[2018-07-22] MEDS ORDERED: morphine SULFATE 10 MG/ML, 1ML IVPush PRN (15:30)
[2018-07-22] MEDS ORDERED: ONDANSETRON 2MG/ML, 2ML IVPush PRN (15:30)
[2018-07-22] MEDS ORDERED: HEPARIN 5,000 UNITS/ML, 1ML SQ SCH (15:30)
[2018-07-22] MEDS ORDERED: REGULAR INSULIN 62.5 UNITS in SODIUM CHLORIDE 0.9% 249.375 ML IV PRN (15:30)
[2018-07-22] MEDS ORDERED: ACETAMINOPHEN 325 MG TABLET PO PRN (15:30)
[2018-07-22] MEDS ORDERED: DEXTROSE 50%, 50ML SYRINGE IVPush PRN (15:30)
[2018-07-22] MEDS: NICOTINE 21 MG/24 HR PATCH.TD24 TD SCH (15:30)
[2018-07-22] MEDS ORDERED: GLUCAGON 1 MG IM PRN (15:30)
[2018-07-22] MEDS ORDERED: DEXTROSE 4 GM TAB.CHEW PO PRN (15:30)
[2018-07-22 15:34] LABS: ANION GAP 20 mmol/L (5-15); CALCIUM 7.2 mg/dL (8.5-10.1); CHLORIDE 94 mmol/L (98-107)
[2018-07-22 15:37] LABS: AMPHETAMINE SCREEN, URINE Positive (Negative); BARBITURATE SCREEN, URINE Negative (Negative); BENZODIAZEPINE SCREEN, URINE Negative (Negative); CANNABINOID SCREEN, URINE Negative (Negative); COCAINE SCREEN, URINE Negative (Negative); METHADONE SCREEN, URINE Negative (Negative); OPIATE SCREEN, URINE Negative (Negative)
--- NOTE | 2018-07-22 16:15 | NUR ---
INSULIN ORDERED FROM PHARMACY
--- NOTE | 2018-07-22 16:40 | NUR ---
PHARMACY CALLED TO CLARIFY INSULIN ORDER, DRIP TO BE STARTED AT 4.5 UNITS PER HOUR.
--- NOTE | 2018-07-22 17:02 | NUR ---
PHARMACY CALLED ABOUT ISULIN DIP WHICH HAS NOT YET ARRIVED. PT IN BED, US AT BEDSIDE, BURKE OSMAN
--- NOTE | 2018-07-22 17:25 | NUR ---
ADULT DKA INSULIN DRIP INITIATED, PT ASLEEP IN BED, NAD, NO NEEDS AT THIS TIME, WCTM
--- NOTE | 2018-07-22 18:30 | NUR ---
PT ASLEEP IN BED, NAD, AWAITING ICU BED, WCTM.
--- NOTE | 2018-07-22 19:00 | NUR ---
BEDSIDE REPORT TO JC MAJOR, PT CARE TRANSFERRED AT THIS TIME.
--- NOTE | 2018-07-22 19:04 | NUR ---
REPORT RECEIVED FROM JC JONES. ASSUMED CARE OF PT. PT RESTING ON GURNEY WITH EYES CLOSED, AROUSES TO STIMULI. RESPIRATIONS EVEN AND UNLABORED. VITALS STABLE. BED GIVEN FOR PT. AWAITING REPORT AT THIS TIME.
--- NOTE | 2018-07-22 19:18 | NUR ---
ATTEMPTED TO CALL REPORT TO JC NOONAN, SARAN UNAVAILABLE AT THIS TIME.
--- NOTE | 2018-07-22 19:29 | NUR ---
REPORT TO JC ADAMES. Addendum: 07/22/18 at 1931 by TERRIE REPORT TO JC NOONAN
[2018-07-22] MEDS ORDERED: D5%-0.45% NACL 1,000 ML IV SCH ×2 (20:30)
[2018-07-22] MEDS: SODIUM CHLORIDE FLUSH 10ML SYR IVF SCH (20:46)
[2018-07-22] MEDS: PANTOPRAZOLE 80 MG in SODIUM CHLORIDE 0.9% 100 ML IV SCH (20:51)
[2018-07-22 21:10] LABS: ANION GAP 11 mmol/L (5-15); CALCIUM 7.6 mg/dL (8.5-10.1); CHLORIDE 100 mmol/L (98-107)
[2018-07-22] MEDS: D5%-0.45NACL+KCL 20MEQ 1,000 ML IV SCH (22:14)
[2018-07-23 01:01] LABS: ANION GAP 7 mmol/L (5-15); CALCIUM 7.2 mg/dL (8.5-10.1); CHLORIDE 101 mmol/L (98-107); CREATININE 1.24 mg/dL (0.55-1.02)
[2018-07-23] MEDS: D5%-0.45NACL+KCL 20MEQ 1,000 ML IV SCH ×2 (04:18→11:20)
[2018-07-23 06:51] LABS: MEAN CORPUSCULAR HEMOGLOBIN 26.8 pg (27.0-34.8); MEAN CORPUSCULAR HGB CONC 32.7 g/dL (32.4-35.8); MEAN CORPUSCULAR VOLUME 81.8 fL (80-100); MEAN PLATELET VOLUME 9.2 fL (7.4-10.4); PLATELET COUNT 393 x10^3/uL (130-400); RED BLOOD COUNT 4.19 x10^6/uL (3.82-5.3); RED CELL DISTRIBUTION WIDTH 14.9 % (9.6-15.2)
[2018-07-23] MEDS: PANTOPRAZOLE 80 MG in SODIUM CHLORIDE 0.9% 100 ML IV SCH (06:55)
[2018-07-23 07:05] LABS: ALANINE AMINOTRANSFERASE 13 U/L (12-78); ALBUMIN 2.9 g/dL (3.4-5.0); ANION GAP 7 mmol/L (5-15); CALCIUM 7.1 mg/dL (8.5-10.1); CHLORIDE 101 mmol/L (98-107); CREATININE 0.96 mg/dL (0.55-1.02)
[2018-07-23 07:07] LABS: ALKALINE PHOSPHATASE 64 U/L (45-117); BILIRUBIN,TOTAL 0.4 mg/dL (0.2-1.0); TOTAL PROTEIN 5.9 g/dL (6.4-8.2)
[2018-07-23 07:40] LABS: BASOPHILS # (AUTO) 0.06 x10^3/uL (0-0.1); BASOPHILS % (AUTO) 0 % (0-1); EOSINOPHILS # (AUTO) 0.02 x10^3/uL (0-0.4); EOSINOPHILS % (AUTO) 0 % (1-7); LYMPHOCYTES # (AUTO) 2.09 x10^3/uL (1-3.4); LYMPHOCYTES % (AUTO) 11 % (22-44); MD SCAN; MONOCYTES # (AUTO) 1.91 x10^3/uL (0.2-0.8); MONOCYTES % (AUTO) 10 % (2-9); NEUTROPHILS # (AUTO) 15.87 x10^3/uL (1.8-6.8); NEUTROPHILS % (AUTO) 80 % (42-75)
[2018-07-23] MEDS: SODIUM CHLORIDE FLUSH 10ML SYR IVF SCH ×2 (07:47→20:13)
[2018-07-23 09:16] LABS: ANION GAP 7 mmol/L (5-15); CALCIUM 6.9 mg/dL (8.5-10.1); CHLORIDE 102 mmol/L (98-107); CREATININE 0.82 mg/dL (0.55-1.02)
[2018-07-23 13:29] LABS: ANION GAP 8 mmol/L (5-15); CHLORIDE 101 mmol/L (98-107); CREATININE 0.76 mg/dL (0.55-1.02)
[2018-07-23] MEDS: NICOTINE 21 MG/24 HR PATCH.TD24 TD SCH (15:30)
[2018-07-23] MEDS ORDERED: MAGNESIUM SULFATE PMX 2GM/50ML 50 ML IV ONE (17:30)
[2018-07-23] MEDS: INSULIN GLARGINE 100 UNITS/ML, PEN SQ-INSULIN SCH ×2 (17:40→22:08)
[2018-07-23 18:04] LABS: ANION GAP 6 mmol/L (5-15); CALCIUM 7.3 mg/dL (8.5-10.1); CHLORIDE 103 mmol/L (98-107); CREATININE 0.69 mg/dL (0.55-1.02)
[2018-07-23 19:08] VITALS: BP 126/77
[2018-07-23] MEDS: POTASSIUM ACID PHOSPHATE 500 MG TABLET.SOL PO SCH (20:13)
[2018-07-23] MEDS: PANTOPRAZOLE 40 MG IV IVPush SCH (20:13)
[2018-07-23] MEDS: MAGNESIUM OXIDE 400 MG TABLET PO SCH (20:13)
[2018-07-23] MEDS: INSULIN LISPRO 100 UNITS/ML, PEN SQ-INSULIN SCH (22:09)
[2018-07-23 22:34] LABS: BASOPHILS # (AUTO) 0.02 x10^3/uL (0-0.1); BASOPHILS % (AUTO) 0 % (0-1); EOSINOPHILS # (AUTO) 0.02 x10^3/uL (0-0.4); EOSINOPHILS % (AUTO) 0 % (1-7); LYMPHOCYTES # (AUTO) 1.91 x10^3/uL (1-3.4); LYMPHOCYTES % (AUTO) 15 % (22-44); MD NO; MEAN CORPUSCULAR HEMOGLOBIN 27.5 pg (27.0-34.8); MEAN CORPUSCULAR HGB CONC 32.9 g/dL (32.4-35.8); MEAN CORPUSCULAR VOLUME 83.6 fL (80-100); MEAN PLATELET VOLUME 8.8 fL (7.4-10.4); MONOCYTES # (AUTO) 0.85 x10^3/uL (0.2-0.8); MONOCYTES % (AUTO) 7 % (2-9); NEUTROPHILS # (AUTO) 9.75 x10^3/uL (1.8-6.8); NEUTROPHILS % (AUTO) 78 % (42-75); PLATELET COUNT 435 x10^3/uL (130-400); RED CELL DISTRIBUTION WIDTH 15.1 % (9.6-15.2)
[2018-07-23 22:44] LABS: ANION GAP 6 mmol/L (5-15); CALCIUM 8.1 mg/dL (8.5-10.1); CHLORIDE 102 mmol/L (98-107); CREATININE 0.78 mg/dL (0.55-1.02)
[2018-07-24 00:29] VITALS: BP 141/81
[2018-07-24 01:57] LABS: ANION GAP 7 mmol/L (5-15); CALCIUM 7.8 mg/dL (8.5-10.1); CHLORIDE 103 mmol/L (98-107); CREATININE 0.73 mg/dL (0.55-1.02)
[2018-07-24] MEDS: POTASSIUM ACID PHOSPHATE 500 MG TABLET.SOL PO SCH ×3 (03:51→14:38)
[2018-07-24 05:20] LABS: CHLORIDE 105 mmol/L (98-107)
[2018-07-24 05:31] LABS: BASOPHILS # (AUTO) 0.03 x10^3/uL (0-0.1); BASOPHILS % (AUTO) 0 % (0-1); EOSINOPHILS # (AUTO) 0.03 x10^3/uL (0-0.4); EOSINOPHILS % (AUTO) 0 % (1-7); LYMPHOCYTES # (AUTO) 1.95 x10^3/uL (1-3.4); LYMPHOCYTES % (AUTO) 21 % (22-44); MD NO; MEAN CORPUSCULAR HEMOGLOBIN 27.8 pg (27.0-34.8); MEAN CORPUSCULAR HGB CONC 33.1 g/dL (32.4-35.8); MEAN PLATELET VOLUME 8.7 fL (7.4-10.4); MONOCYTES # (AUTO) 0.97 x10^3/uL (0.2-0.8); MONOCYTES % (AUTO) 11 % (2-9); NEUTROPHILS # (AUTO) 6.19 x10^3/uL (1.8-6.8); NEUTROPHILS % (AUTO) 68 % (42-75); PLATELET COUNT 344 x10^3/uL (130-400); RED BLOOD COUNT 4.05 x10^6/uL (3.82-5.3); RED CELL DISTRIBUTION WIDTH 15.1 % (9.6-15.2)
[2018-07-24 05:32] LABS: ALANINE AMINOTRANSFERASE 16 U/L (12-78); ALBUMIN 2.7 g/dL (3.4-5.0); ALKALINE PHOSPHATASE 76 U/L (45-117); ANION GAP 6 mmol/L (5-15); BILIRUBIN,TOTAL 0.8 mg/dL (0.2-1.0); CALCIUM 7.8 mg/dL (8.5-10.1); CREATININE 0.63 mg/dL (0.55-1.02); TOTAL PROTEIN 6.3 g/dL (6.4-8.2)
[2018-07-24] MEDS: INSULIN LISPRO 100 UNITS/ML, PEN SQ-INSULIN SCH ×4 (07:00→21:21)
[2018-07-24] MEDS: SODIUM CHLORIDE FLUSH 10ML SYR IVF SCH ×2 (07:26→21:21)
[2018-07-24] MEDS: INSULIN GLARGINE 100 UNITS/ML, PEN SQ-INSULIN SCH ×2 (07:48→21:21)
[2018-07-24] MEDS: MAGNESIUM OXIDE 400 MG TABLET PO SCH ×2 (07:49→21:21)
[2018-07-24] MEDS: PANTOPRAZOLE 40 MG IV IVPush SCH (07:49)
[2018-07-24 08:08] VITALS: BP 157/95
[2018-07-24 09:44] LABS: ANION GAP 6 mmol/L (5-15); CALCIUM 7.8 mg/dL (8.5-10.1); CHLORIDE 100 mmol/L (98-107)
[2018-07-24 09:45] LABS: CREATININE 0.66 mg/dL (0.55-1.02)
[2018-07-24] MEDS: D5%-0.9% NACL+KCL 20MEQ 1,000 ML IV SCH ×2 (10:29→22:55)
[2018-07-24 11:51] VITALS: BP 145/97
[2018-07-24 13:37] LABS: ANION GAP 7 mmol/L (5-15); CALCIUM 7.8 mg/dL (8.5-10.1); CHLORIDE 100 mmol/L (98-107); CREATININE 0.85 mg/dL (0.55-1.02)
[2018-07-24 14:25] VITALS: BP 145/97
[2018-07-24] MEDS: NICOTINE 21 MG/24 HR PATCH.TD24 TD SCH (14:39)
[2018-07-24 18:06] LABS: ANION GAP 5 mmol/L (5-15); CALCIUM 7.8 mg/dL (8.5-10.1); CHLORIDE 100 mmol/L (98-107); CREATININE 0.75 mg/dL (0.55-1.02)
[2018-07-24 20:08] VITALS: BP 144/90
[2018-07-24 21:18] LABS: ANION GAP 8 mmol/L (5-15); CALCIUM 7.8 mg/dL (8.5-10.1); CHLORIDE 103 mmol/L (98-107); CREATININE 0.82 mg/dL (0.55-1.02)
[2018-07-25 00:27] VITALS: BP 148/98
[2018-07-25 01:32] LABS: ANION GAP 4 mmol/L (5-15); CALCIUM 7.9 mg/dL (8.5-10.1); CHLORIDE 107 mmol/L (98-107); CREATININE 0.63 mg/dL (0.55-1.02)
[2018-07-25 05:17] LABS: BASOPHILS # (AUTO) 0.04 x10^3/uL (0-0.1); BASOPHILS % (AUTO) 1 % (0-1); EOSINOPHILS # (AUTO) 0.05 x10^3/uL (0-0.4); EOSINOPHILS % (AUTO) 1 % (1-7); LYMPHOCYTES # (AUTO) 1.66 x10^3/uL (1-3.4); LYMPHOCYTES % (AUTO) 26 % (22-44); MD NO; MEAN CORPUSCULAR HGB CONC 33.8 g/dL (32.4-35.8); MEAN PLATELET VOLUME 8.9 fL (7.4-10.4); MONOCYTES # (AUTO) 0.76 x10^3/uL (0.2-0.8); MONOCYTES % (AUTO) 12 % (2-9); NEUTROPHILS % (AUTO) 60 % (42-75); PLATELET COUNT 300 x10^3/uL (130-400); RED BLOOD COUNT 3.76 x10^6/uL (3.82-5.3); RED CELL DISTRIBUTION WIDTH 15.6 % (9.6-15.2)
[2018-07-25 05:24] LABS: ANION GAP 5 mmol/L (5-15); CALCIUM 7.7 mg/dL (8.5-10.1); CHLORIDE 109 mmol/L (98-107); CREATININE 0.62 mg/dL (0.55-1.02)
[2018-07-25] MEDS ORDERED: PANTOPROZOLE 40MG TABLET PO SCH (06:00)
[2018-07-25 08:00] VITALS: BP 159/82
[2018-07-25] MEDS: MAGNESIUM OXIDE 400 MG TABLET PO SCH (08:28)
[2018-07-25] MEDS: INSULIN GLARGINE 100 UNITS/ML, PEN SQ-INSULIN SCH (08:28)
[2018-07-25] MEDS: SODIUM CHLORIDE FLUSH 10ML SYR IVF SCH (08:29)
[2018-07-25] MEDS: INSULIN LISPRO 100 UNITS/ML, PEN SQ-INSULIN SCH ×2 (08:29→11:34)
[2018-07-25 08:58] LABS: ANION GAP 6 mmol/L (5-15); CALCIUM 7.8 mg/dL (8.5-10.1); CHLORIDE 102 mmol/L (98-107); CREATININE 0.65 mg/dL (0.55-1.02)
[2018-07-25] MEDS ORDERED: LISI-424 PO (10:35)
== END 2018-07-25 13:41 | disposition home or self-care (01) | DRG 638 ==
LOC: ED 13:50 → EDIP 13:51 → ED 14:06 → CCU 19:44 → 3NE 07-23 18:26
PROVIDERS: ADMIT Internal Medicine; ATTEND Internal Medicine
DX: E10.10 Type 1 diabetes mellitus with ketoacidosis without coma (principal); K92.2 Gastrointestinal hemorrhage, unspecified; N17.9 Acute kidney failure, unspecified; D72.829 Elevated white blood cell count, unspecified; E83.39 Other disorders of phosphorus metabolism; E86.0 Dehydration; F15.10 Other stimulant abuse, uncomplicated; F17.210 Nicotine dependence, cigarettes, uncomplicated; I10 Essential (primary) hypertension; K21.9 Gastro-esophageal reflux disease without esophagitis; K59.00 Constipation, unspecified; Z86.718 Personal history of other venous thrombosis and embolism; Z87.19 Personal history of other diseases of the digestive system; Z91.19 Patient's noncompliance with other medical treatment and regimen; E87.6 Hypokalemia; E83.42 Hypomagnesemia; Z79.899 Other long term (current) drug therapy
CPT/HCPCS: 36415; 74022; 80048; 80053; 80307; 81003; 82010; 82803; 82962; 83690; 83735; 84100; 84703; 85014; 85018; 85025; 85610; 85730; 86850; 86900; 87081; 87147; 93005; G0378; J1815; J2405; C9113; J3475; J3480; J7030; J7050

== ENCOUNTER 2018-10-09 03:26 | Inpatient (IN) | payer MEDICAID ==
[~2018-10-09] VITALS: Ht 162.6 cm; Wt 43.0 kg
[~2018-10-09 03:26] MED LIST changes: +LISI-424 PO
[2018-10-09] MEDS ORDERED: SODIUM CHLORIDE 0.9% 1,000ML IVBOLUS ONE ×2 (04:00)
[2018-10-09] MEDS ORDERED: PROMETHAZINE 25 MG/ML, 1ML IM ONE (04:00)
[2018-10-09] MEDS ORDERED: ONDANSETRON 2MG/ML, 2ML IVPush ONE (04:00)
[2018-10-09] MEDS ORDERED: PROMETHAZINE 25 MG/ML, 1ML ONE (04:07)
[2018-10-09] MEDS ORDERED: ONDANSETRON 2MG/ML, 2ML ONE ×2 (04:07→06:03)
--- NOTE | 2018-10-09 04:07 | NUR ---
PT FSBS IN TRIAGE READS "HIGH". DR BLACKBURN NOTIFIED.
[2018-10-09 04:11] LABS: PH, VENOUS 7.337 pH (7.320-7.420)
--- NOTE | 2018-10-09 04:22 | NUR ---
PIV STARTED. PT MEDICATED PER EMAR. PT STATES " I THINK IM IN DKA." WHEN ASKED WHEN SHE LAST TOOK HER INSULIN THE RESPONSE WAS " A FEW DAYS AGO." WHEN ASKED WHEN LAST CHECKED BLOOD SUGAR THE RESPONSE WAS "I CAN'T EVEN REMEMBER WHEN."
[2018-10-09 04:27] LABS: ACETONE, SERUM Large (80mg/dL) mg/dL (Negative); MEAN CORPUSCULAR HEMOGLOBIN 27.5 pg (27.0-34.8); MEAN CORPUSCULAR HGB CONC 31.2 g/dL (32.4-35.8); MEAN PLATELET VOLUME 9.4 fL (7.4-10.4); PLATELET COUNT 454 x10^3/uL (130-400); RED BLOOD COUNT 5.91 x10^6/uL (3.82-5.3); RED CELL DISTRIBUTION WIDTH 15.9 % (9.6-15.2)
[2018-10-09 04:29] LABS: ANION GAP 20 mmol/L (5-15); CALCIUM 9.6 mg/dL (8.5-10.1); CHLORIDE 86 mmol/L (98-107)
[2018-10-09 04:34] LABS: ALANINE AMINOTRANSFERASE 26 U/L (12-78); ALKALINE PHOSPHATASE 117 U/L (45-117); BILIRUBIN,TOTAL 1.2 mg/dL (0.2-1.0)
[2018-10-09 04:52] LABS: BASOPHILS # (AUTO) 0.01 x10^3/uL (0-0.1); BASOPHILS % (AUTO) 0 % (0-1); EOSINOPHILS % (AUTO) 0 % (1-7); LYMPHOCYTES % (AUTO) 6 % (22-44); MD SCAN; MONOCYTES # (AUTO) 0.48 x10^3/uL (0.2-0.8); MONOCYTES % (AUTO) 3 % (2-9); NEUTROPHILS # (AUTO) 15.83 x10^3/uL (1.8-6.8); NEUTROPHILS % (AUTO) 91 % (42-75)
[2018-10-09] MEDS: REGULAR INSULIN 62.5 UNITS in SODIUM CHLORIDE 0.9% 249.375 ML IV PRN ×2 (05:00→06:15)
--- NOTE | 2018-10-09 05:03 | NUR ---
INSULIN GTT STARTED WITH SECOND RN CLINICAL INSTRUCTOR FOR BLOOD GLUCOSE 754
[2018-10-09] MEDS ORDERED: SODIUM CHLORIDE 0.9% 1,000 ML IV SCH (05:42)
[2018-10-09] MEDS ORDERED: REGULAR INSULIN 62.5 UNITS in SODIUM CHLORIDE 0.9% 249.375 ML IV PRN (05:42)
--- NOTE | 2018-10-09 05:59 | NUR ---
PER BLOOD GLUCOSE MONITOR BLOOD SUGAR HIGH. ORDER PLACED FOR LAB DRAW.
[2018-10-09] MEDS ORDERED: ACETAMINOPHEN 325 MG TABLET PO PRN (06:00)
[2018-10-09 06:02] LABS: HCG UR SG 1.029 (1.003-1.030); MICROSCOPIC NOT IND
[2018-10-09] MEDS: ONDANSETRON 2MG/ML, 2ML IVPush PRN ×2 (06:06→12:04)
[2018-10-09 06:07] LABS: CULTURE INDICATED? NO
--- NOTE | 2018-10-09 06:26 | NUR ---
REPORT GIVEN TO LISS GREENE. PT GOING TO ROOM 555
[2018-10-09 06:39] LABS: ANION GAP 21 mmol/L (5-15); CALCIUM 8.7 mg/dL (8.5-10.1); CHLORIDE 94 mmol/L (98-107); CREATININE 1.51 mg/dL (0.55-1.02)
[2018-10-09 06:48] LABS: HEMOGLOBIN A1C 11.5 % (4.2-6.3)
[2018-10-09 07:51] LABS: AMPHETAMINE SCREEN, URINE Negative (Negative); BARBITURATE SCREEN, URINE Negative (Negative); BENZODIAZEPINE SCREEN, URINE Negative (Negative); CANNABINOID SCREEN, URINE Negative (Negative); COCAINE SCREEN, URINE Negative (Negative); METHADONE SCREEN, URINE Negative (Negative); OPIATE SCREEN, URINE Negative (Negative)
[2018-10-09] MEDS ORDERED: LABETALOL 5MG/ML, 20ML IVPush PRN (08:00)
[2018-10-09] MEDS: LISINOPRIL 5 MG TABLET PO SCH (08:14)
[2018-10-09] MEDS: ENOXAPARIN 40 MG/0.4 ML SQ SCH (08:15)
[2018-10-09] MEDS: DOCUSATE 100 MG CAPSULE PO SCH ×2 (08:52→20:09)
[2018-10-09 08:58] VITALS: BP 193/114
[2018-10-09] MEDS ORDERED: PANTOPRAZOLE 40 MG IV IVPush SCH (09:00)
[2018-10-09 10:12] LABS: ANION GAP 14 mmol/L (5-15); CHLORIDE 105 mmol/L (98-107); CREATININE 1.09 mg/dL (0.55-1.02)
[2018-10-09] MEDS: INSULIN LISPRO 100 UNITS/ML, PEN SQ-INSULIN SCH ×3 (11:20→20:09)
[2018-10-09] MEDS: INSULIN GLARGINE 100 UNITS/ML, PEN SQ-INSULIN SCH ×2 (11:21→20:09)
[2018-10-09 15:22] VITALS: BP 138/92
[2018-10-09] MEDS ORDERED: DEXTROSE 4 GM TAB.CHEW PO PRN (17:30)
[2018-10-09] MEDS ORDERED: DEXTROSE 50%, 50ML SYRINGE IVPush PRN (17:30)
[2018-10-09] MEDS ORDERED: GLUCAGON 1 MG IM PRN (17:30)
[2018-10-09 19:17] VITALS: BP 156/85
[2018-10-09] MEDS ORDERED: DEXTROSE 50%, 50ML SYRINGE IVPush ONE (20:30)
[2018-10-09] MEDS: SODIUM CHLORIDE FLUSH 10ML SYR IVF SCH (20:41)
[2018-10-10 00:03] VITALS: BP 146/76
[2018-10-10] MEDS: ONDANSETRON 2MG/ML, 2ML IVPush PRN (02:16)
[2018-10-10 04:07] VITALS: BP 151/84
[2018-10-10] MEDS ORDERED: SODIUM CHLORIDE 0.9% 1,000 ML IV SCH (05:42)
[2018-10-10] MEDS: INSULIN LISPRO 100 UNITS/ML, PEN SQ-INSULIN SCH ×4 (07:16→20:30)
[2018-10-10 07:22] VITALS: BP 125/73
[2018-10-10] MEDS: DOCUSATE 100 MG CAPSULE PO SCH ×2 (08:17→21:00)
[2018-10-10] MEDS: LISINOPRIL 5 MG TABLET PO SCH (08:17)
[2018-10-10] MEDS: ENOXAPARIN 40 MG/0.4 ML SQ SCH (08:17)
[2018-10-10] MEDS: SODIUM CHLORIDE FLUSH 10ML SYR IVF SCH ×2 (08:18→22:34)
[2018-10-10] MEDS ORDERED: INSULIN GLARGINE 100 UNITS/ML, PEN SQ-INSULIN SCH (09:00)
[2018-10-10 09:04] LABS: ALANINE AMINOTRANSFERASE 19 U/L (12-78); ALBUMIN 2.9 g/dL (3.4-5.0); ANION GAP 9 mmol/L (5-15); CALCIUM 8.2 mg/dL (8.5-10.1); CHLORIDE 98 mmol/L (98-107); CREATININE 0.73 mg/dL (0.55-1.02)
[2018-10-10 09:06] LABS: ALKALINE PHOSPHATASE 80 U/L (45-117); BILIRUBIN,TOTAL 0.5 mg/dL (0.2-1.0); TOTAL PROTEIN 6.3 g/dL (6.4-8.2)
[2018-10-10 09:48] LABS: BASOPHILS # (AUTO) 0.02 x10^3/uL (0-0.1); BASOPHILS % (AUTO) 0 % (0-1); EOSINOPHILS # (AUTO) 0.01 x10^3/uL (0-0.4); EOSINOPHILS % (AUTO) 0 % (1-7); LYMPHOCYTES # (AUTO) 1.52 x10^3/uL (1-3.4); LYMPHOCYTES % (AUTO) 8 % (22-44); MD SCAN; MEAN CORPUSCULAR HEMOGLOBIN 27.7 pg (27.0-34.8); MEAN CORPUSCULAR HGB CONC 31.7 g/dL (32.4-35.8); MEAN CORPUSCULAR VOLUME 87.3 fL (80-100); MEAN PLATELET VOLUME 8.8 fL (7.4-10.4); MONOCYTES # (AUTO) 1.14 x10^3/uL (0.2-0.8); MONOCYTES % (AUTO) 6 % (2-9); NEUTROPHILS # (AUTO) 17.28 x10^3/uL (1.8-6.8); NEUTROPHILS % (AUTO) 87 % (42-75); PLATELET COUNT 329 x10^3/uL (130-400); RED BLOOD COUNT 4.56 x10^6/uL (3.82-5.3); RED CELL DISTRIBUTION WIDTH 16.3 % (9.6-15.2)
[2018-10-10] MEDS ORDERED: POTASSIUM CHLORIDE 40 MEQ in SODIUM CHLORIDE 0.9% 500 ML IV ONE (10:30)
[2018-10-10] MEDS: FAMOTIDINE 20 MG/2 ML IVPush SCH ×2 (10:56→20:29)
[2018-10-10 12:26] VITALS: BP 106/70
[2018-10-10] MEDS: INSULIN GLARGINE 100 UNITS/ML, PEN SQ-INSULIN SCH (20:29)
[2018-10-10 21:32] VITALS: BP 118/75
[2018-10-10 22:26] LABS: MICROSCOPIC NOT IND
[2018-10-11 02:09] VITALS: BP 125/75
[2018-10-11 05:32] LABS: ALBUMIN 2.5 g/dL (3.4-5.0); ANION GAP 4 mmol/L (5-15); CALCIUM 8.2 mg/dL (8.5-10.1); CHLORIDE 105 mmol/L (98-107)
[2018-10-11 05:35] LABS: ALANINE AMINOTRANSFERASE 21 U/L (12-78); ALKALINE PHOSPHATASE 77 U/L (45-117); BILIRUBIN,TOTAL 0.3 mg/dL (0.2-1.0); CREATININE 0.67 mg/dL (0.55-1.02)
[2018-10-11 05:36] LABS: MEAN CORPUSCULAR HEMOGLOBIN 28.2 pg (27.0-34.8); MEAN CORPUSCULAR HGB CONC 32.3 g/dL (32.4-35.8); MEAN CORPUSCULAR VOLUME 87.5 fL (80-100); MEAN PLATELET VOLUME 8.9 fL (7.4-10.4); PLATELET COUNT 284 x10^3/uL (130-400); RED BLOOD COUNT 4.24 x10^6/uL (3.82-5.3); RED CELL DISTRIBUTION WIDTH 16.6 % (9.6-15.2)
[2018-10-11] MEDS ORDERED: SODIUM CHLORIDE 0.9% 1,000 ML IV SCH (05:42)
[2018-10-11 06:18] LABS: BASOPHILS # (AUTO) 0.03 x10^3/uL (0-0.1); BASOPHILS % (AUTO) 0 % (0-1); EOSINOPHILS # (AUTO) 0.01 x10^3/uL (0-0.4); EOSINOPHILS % (AUTO) 0 % (1-7); LYMPHOCYTES # (AUTO) 2.14 x10^3/uL (1-3.4); LYMPHOCYTES % (AUTO) 25 % (22-44); MD SCAN; MONOCYTES # (AUTO) 0.78 x10^3/uL (0.2-0.8); MONOCYTES % (AUTO) 9 % (2-9); NEUTROPHILS # (AUTO) 5.58 x10^3/uL (1.8-6.8); NEUTROPHILS % (AUTO) 65 % (42-75)
[2018-10-11 06:45] VITALS: BP 141/87
[2018-10-11] MEDS: ENOXAPARIN 40 MG/0.4 ML SQ SCH (07:32)
[2018-10-11] MEDS: LISINOPRIL 5 MG TABLET PO SCH (07:32)
[2018-10-11] MEDS: INSULIN LISPRO 100 UNITS/ML, PEN SQ-INSULIN SCH ×3 (07:32→16:28)
[2018-10-11] MEDS: FAMOTIDINE 20 MG/2 ML IVPush SCH (07:32)
[2018-10-11] MEDS: INSULIN GLARGINE 100 UNITS/ML, PEN SQ-INSULIN SCH (07:32)
[2018-10-11] MEDS: DOCUSATE 100 MG CAPSULE PO SCH (07:32)
[2018-10-11] MEDS: SODIUM CHLORIDE FLUSH 10ML SYR IVF SCH (07:33)
[2018-10-11] MEDS ORDERED: INSULIN GLARGINE 100 UNITS/ML, PEN SQ-INSULIN ONE (11:30)
[2018-10-11 13:55] VITALS: BP 136/85
[2018-10-11 17:30] VITALS: BP 134/80
[2018-10-11] MEDS ORDERED: FAMOTIDINE 20 MG TABLET PO SCH (21:00)
== END 2018-10-11 18:13 | disposition home or self-care (01) | DRG 638 ==
LOC: ED 05:06 → EDIP 05:20 → CCU 06:37 → 4NOR 14:26
PROVIDERS: ADMIT Family Medicine; ATTEND Family Medicine
DX: E10.10 Type 1 diabetes mellitus with ketoacidosis without coma (principal); N17.9 Acute kidney failure, unspecified; F17.200 Nicotine dependence, unspecified, uncomplicated; E86.0 Dehydration; D72.829 Elevated white blood cell count, unspecified; R00.0 Tachycardia, unspecified; R13.10 Dysphagia, unspecified; I10 Essential (primary) hypertension; E87.6 Hypokalemia; F15.10 Other stimulant abuse, uncomplicated; Z87.19 Personal history of other diseases of the digestive system; Z86.718 Personal history of other venous thrombosis and embolism; Z91.14 Patient's other noncompliance with medication regimen; Z79.4 Long term (current) use of insulin; Z79.899 Other long term (current) drug therapy
CPT/HCPCS: 36415; 96361; 99291; J3490; 71045; 80048; 80053; 80307; 81003; 81025; 82010; 82803; 82962; 83036; 83690; 85025; 87081; 93005; 96372; 96374; G0378; J1650; J2405; J2550; J3480; J1815; J7030; J7040

== ENCOUNTER 2019-09-15 20:45 | Emergency (ER) | payer MEDICAID ==
[~2019-09-15] VITALS: Ht 167.6 cm; Wt 62.0 kg
[2019-09-15 21:22] VITALS: BP 137/97
[2019-09-15 21:43] LABS: BASOPHILS # (AUTO) 0.06 x10^3/uL (0-0.1); BASOPHILS % (AUTO) 1 % (0-1); EOSINOPHILS # (AUTO) 0.15 x10^3/uL (0-0.4); EOSINOPHILS % (AUTO) 1 % (1-7); LYMPHOCYTES # (AUTO) 2.15 x10^3/uL (1-3.4); LYMPHOCYTES % (AUTO) 18 % (22-44); MD NO; MEAN CORPUSCULAR HEMOGLOBIN 26.8 pg (27.0-34.8); MEAN CORPUSCULAR HGB CONC 31.9 g/dL (32.4-35.8); MEAN CORPUSCULAR VOLUME 83.9 fL (80-100); MEAN PLATELET VOLUME 8.7 fL (7.4-10.4); MONOCYTES # (AUTO) 0.83 x10^3/uL (0.2-0.8); MONOCYTES % (AUTO) 7 % (2-9); NEUTROPHILS # (AUTO) 9.07 x10^3/uL (1.8-6.8); NEUTROPHILS % (AUTO) 74 % (42-75); PLATELET COUNT 539 x10^3/uL (130-400); RED BLOOD COUNT 4.33 x10^6/uL (3.82-5.3); RED CELL DISTRIBUTION WIDTH 14.9 % (9.6-15.2)
[2019-09-15 21:50] LABS: ALANINE AMINOTRANSFERASE 21 U/L (12-78); ALBUMIN 3.6 g/dL (3.4-5.0); ANION GAP 9 mmol/L (5-15); CALCIUM 9.2 mg/dL (8.5-10.1); CHLORIDE 105 mmol/L (98-107); CREATININE 1.12 mg/dL (0.55-1.02)
[2019-09-15 21:52] LABS: ALKALINE PHOSPHATASE 66 U/L (45-117); BILIRUBIN,TOTAL 0.1 mg/dL (0.2-1.0); TOTAL PROTEIN 7.9 g/dL (6.4-8.2)
--- NOTE | 2019-09-15 21:57 | NUR ---
EMERGENCY CONTACT* SAM- [id number]
--- NOTE | 2019-09-15 22:34 | NUR ---
PT ABLE TO AMBUALTE TO BATHROOM WITH STEADY GAIT. PT REQUESTING SANDWICH AFTER REPORTING SHE CANNOT EAT SOLIDS. NOTIFIED.
== END 2019-09-15 22:50 | disposition home or self-care (01) ==
LOC: ED 22:30
DX: E11.649 Type 2 diabetes mellitus with hypoglycemia without coma (principal); R94.31 Abnormal electrocardiogram [ECG] [EKG]; I10 Essential (primary) hypertension; K21.9 Gastro-esophageal reflux disease without esophagitis; F17.200 Nicotine dependence, unspecified, uncomplicated
CPT/HCPCS: 36415; 80053; 82962; 85025; 93005; 99284

== ENCOUNTER 2020-07-05 03:10 | Inpatient (IN) | payer MEDICAID ==
[~2020-07-05] VITALS: Ht 162.6 cm; Wt 53.3 kg
[~2020-07-05 03:10] MED LIST changes: -LISI-424 PO; +LISI-606 PO; +OMEP20TA62 PO; +[UNRECOGNIZED DRUG - OTHER]
[2020-07-05] MEDS ORDERED: SODIUM CHLORIDE 0.9% 1,000ML IVBOLUS ONE (04:00)
[2020-07-05] MEDS ORDERED: ONDANSETRON 2MG/ML, 2ML IVPush ONE (04:00)
[2020-07-05 04:24] LABS: PH, VENOUS 7.478 pH (7.320-7.420)
[2020-07-05 04:26] LABS: BASOPHILS % (AUTO) 0 % (0-1); EOSINOPHILS % (AUTO) 0 % (1-7); LYMPHOCYTES % (AUTO) 5 % (22-44); MEAN CORPUSCULAR HEMOGLOBIN 23.4 pg (27.0-34.8); MEAN CORPUSCULAR HGB CONC 31.7 g/dL (32.4-35.8); MEAN PLATELET VOLUME 9.7 fL (7.4-10.4); MONOCYTES % (AUTO) 8 % (2-9); NEUTROPHILS % (AUTO) 87 % (42-75); PLATELET COUNT 574 x10^3/uL (130-400); RED CELL DISTRIBUTION WIDTH 16.9 % (9.6-15.2)
[2020-07-05] MEDS ORDERED: ONDANSETRON 2MG/ML, 2ML ONE (04:37)
[2020-07-05 04:41] LABS: ALANINE AMINOTRANSFERASE 29 U/L (12-78); ALBUMIN 4.2 g/dL (3.4-5.0); ANION GAP 16 mmol/L (5-15); CALCIUM 9.1 mg/dL (8.5-10.1); CHLORIDE 79 mmol/L (98-107); CREATININE 2.37 mg/dL (0.55-1.02)
[2020-07-05 04:46] LABS: ACETONE, SERUM Moderate(40mg/dL) (Negative); ALKALINE PHOSPHATASE 131 U/L (45-117); BILIRUBIN,TOTAL 0.9 mg/dL (0.2-1.0); TOTAL PROTEIN 9.4 g/dL (6.4-8.2); TROPONIN I < 0.015 ng/mL (0.000-0.045)
[2020-07-05] MEDS ORDERED: PANTOPRAZOLE 40 MG IV ONE (04:48)
[2020-07-05] MEDS ORDERED: METOCLOPRAMIDE 5 MG/ML, 2ML ONE (04:48)
[2020-07-05] MEDS ORDERED: PANTOPRAZOLE 40 MG IV IVPush ONE (05:00)
[2020-07-05] MEDS ORDERED: METOCLOPRAMIDE 5 MG/ML, 2ML IVPush ONE (05:00)
[2020-07-05 05:13] LABS: MD SCAN
[2020-07-05] MEDS ORDERED: POTASSIUM CHLORIDE 20 MEQ in SODIUM CHLORIDE 0.9% 250 ML IV ONE (05:30)
[2020-07-05] MEDS ORDERED: LACTATED RINGERS 1,000 ML IVBOLUS ONE (05:30)
[2020-07-05] MEDS ORDERED: INSULIN REGULAR 100 UNITS/ML, 3ML VIAL IVPush ONE (05:30)
[2020-07-05] MEDS ORDERED: INSULIN SINGLE DOSE, ER ONE (05:45)
[2020-07-05] MEDS ORDERED: ONDANSETRON 2MG/ML, 2ML IVPush PRN (06:00)
[2020-07-05] MEDS ORDERED: MORPHINE SULFATE 4 MG/ML, 1ML IVPush PRN (06:00)
[2020-07-05] MEDS ORDERED: METOCLOPRAMIDE 5 MG/ML, 2ML IV PRN (07:00)
[2020-07-05] MEDS ORDERED: ONDANSETRON 2MG/ML, 2ML IV PRN (07:00)
[2020-07-05] MEDS ORDERED: hydrALAzine 20 MG/ML, 1ML IVPush PRN (07:00)
[2020-07-05] MEDS ORDERED: ENALAPRILAT 1.25 MG/ML, 2ML IVPush PRN (07:00)
[2020-07-05] MEDS ORDERED: PROMETHAZINE 25 MG/ML, 1ML IM PRN (07:00)
[2020-07-05] MEDS ORDERED: ONDANSETRON ODT 4 MG PO PRN (07:00)
[2020-07-05] MEDS ORDERED: ACETAMINOPHEN 325 MG TABLET PO PRN (07:00)
[2020-07-05] MEDS ORDERED: SODIUM CHLORIDE 0.9% 1,000 ML IV SCH (07:00)
[2020-07-05] MEDS ORDERED: LABETALOL 5MG/ML, 20ML IVPush PRN (07:00)
[2020-07-05 07:46] VITALS: BP 135/87
[2020-07-05 08:03] LABS: ANION GAP 16 mmol/L (5-15); CALCIUM 7.7 mg/dL (8.5-10.1); CHLORIDE 97 mmol/L (98-107); CREATININE 1.53 mg/dL (0.55-1.02)
[2020-07-05] MEDS: HEPARIN 5,000 UNITS/ML, 1ML SQ SCH ×4 (08:28→23:48)
[2020-07-05] MEDS: PANTOPRAZOLE 40MG TABLET PO SCH (08:29)
[2020-07-05] MEDS: LISINOPRIL 5 MG TABLET PO SCH (08:29)
[2020-07-05] MEDS: INSULIN LISPRO 100 UNITS/ML, PEN SQ-INSULIN SCH ×4 (08:54→20:43)
[2020-07-05] MEDS ORDERED: NITROGLYCERIN 0.4 MG BOTTLE (25 TABS) SL PRN (09:30)
[2020-07-05] MEDS ORDERED: NITROGLYCERIN 0.4 MG BOTTLE (25 TABS) SL ONE (09:35)
[2020-07-05 09:58] LABS: TROPONIN I < 0.015 ng/mL (0.000-0.045)
[2020-07-05] MEDS: D5%-0.45NACL+KCL 20MEQ 1,000 ML IV SCH ×2 (12:38→20:43)
[2020-07-05 13:22] VITALS: BP 105/70
[2020-07-05] MEDS ORDERED: LISI20TA21 PO (17:19)
[2020-07-05] MEDS ORDERED: OMEP40CA42 PO (17:19)
[2020-07-05] MEDS ORDERED: INSU200I4 SQ (17:19)
[2020-07-05] MEDS ORDERED: METO10TA2 PO (17:19)
[2020-07-05] MEDS ORDERED: SUCR1ORA5 PO (17:19)
[2020-07-05] MEDS ORDERED: ONDA4TAB13 PO (17:19)
[2020-07-05 18:56] LABS: MICROSCOPIC NOT IND
[2020-07-05 19:56] VITALS: BP 104/60
[2020-07-05 22:00] LABS: ANION GAP 7 mmol/L (5-15); CALCIUM 7.7 mg/dL (8.5-10.1); CHLORIDE 101 mmol/L (98-107); CREATININE 1.01 mg/dL (0.55-1.02)
[2020-07-06 01:19] VITALS: BP 107/68
[2020-07-06 04:51] LABS: ANION GAP 7 mmol/L (5-15); CALCIUM 8.1 mg/dL (8.5-10.1); CHLORIDE 101 mmol/L (98-107); CREATININE 0.79 mg/dL (0.55-1.02)
[2020-07-06] MEDS: D5%-0.45NACL+KCL 20MEQ 1,000 ML IV SCH (05:49)
[2020-07-06] MEDS: HEPARIN 5,000 UNITS/ML, 1ML SQ SCH (06:26)
[2020-07-06 07:16] VITALS: BP 136/84
[2020-07-06] MEDS: PANTOPRAZOLE 40MG TABLET PO SCH ×2 (07:30→07:33)
[2020-07-06] MEDS: INSULIN LISPRO 100 UNITS/ML, PEN SQ-INSULIN SCH ×2 (07:32→11:00)
[2020-07-06] MEDS: LISINOPRIL 5 MG TABLET PO SCH ×2 (07:33→07:34)
[2020-07-06] MEDS ORDERED: MAGNESIUM HYDROXIDE 8%, 30ML UDC PO SCH (09:00)
[2020-07-06 09:01] LABS: BASOPHILS % (AUTO) 0 % (0-1); EOSINOPHILS % (AUTO) 0 % (1-7); LYMPHOCYTES % (AUTO) 13 % (22-44); MEAN CORPUSCULAR HGB CONC 31.2 g/dL (32.4-35.8); MEAN PLATELET VOLUME 9.7 fL (7.4-10.4); MONOCYTES % (AUTO) 8 % (2-9); NEUTROPHILS % (AUTO) 78 % (42-75); PLATELET COUNT 419 x10^3/uL (130-400); RED BLOOD COUNT 4.16 x10^6/uL (3.82-5.3); RED CELL DISTRIBUTION WIDTH 16.6 % (9.6-15.2)
[2020-07-06 09:26] LABS: MD SCAN
[2020-07-06 12:07] VITALS: BP 112/86
== END 2020-07-06 13:55 | disposition home or self-care (01) | DRG 637 ==
LOC: ED 04:44 → EDIP 06:00 → 4WST 06:45 → DCLOUNGE 07-06 13:53
PROVIDERS: ADMIT Family Medicine; ATTEND Hospitalist
DX: E10.65 Type 1 diabetes mellitus with hyperglycemia (principal); N17.0 Acute kidney failure with tubular necrosis; E87.1 Hypo-osmolality and hyponatremia; E86.0 Dehydration; R00.0 Tachycardia, unspecified; D72.829 Elevated white blood cell count, unspecified; Z72.0 Tobacco use; Z79.4 Long term (current) use of insulin; Z86.718 Personal history of other venous thrombosis and embolism; Z87.01 Personal history of pneumonia (recurrent); Z87.19 Personal history of other diseases of the digestive system; Z91.19 Patient's noncompliance with other medical treatment and regimen
CPT/HCPCS: 36415; 71045; 80048; 80053; 81003; 82010; 82803; 82962; 83036; 83690; 83735; 84100; 84484; 85025; 87040; 93005; 96361; 96365; 96375; 99291; G0378; J1644; J1815; J2405; J3480; Q0162; C9113; J2765; J7030; J7050; J7120

== ENCOUNTER 2020-09-11 00:55 | Emergency (ER) | payer MEDICAID ==
[~2020-09-11] VITALS: Ht 162.6 cm; Wt 50.0 kg
[~2020-09-11 00:55] MED LIST changes: +INSU200I4 SQ; +LISI20TA21 PO; +METO10TA2 PO; +OMEP40CA42 PO; +ONDA4TAB13 PO
--- NOTE | 2020-09-11 01:00 | NUR ---
PT BIBA. PER EMS PT IS HERE FOR N/V/ABD PAIN. PT'S BS WAS 480 PER EMS. PT RESTING IN PINA GARCIA AT BEDSIDE, MONITORING IN PLACE, NADN AT THIS TIME, 20G PIV PLACED IN LEFT FA, WCTM.
[2020-09-11] MEDS ORDERED: ONDANSETRON 2MG/ML, 2ML ONE (01:16)
[2020-09-11] MEDS ORDERED: SODIUM CHLORIDE 0.9% 1,000ML IVBOLUS ONE (01:30)
[2020-09-11] MEDS ORDERED: ONDANSETRON 2MG/ML, 2ML IM ONE (01:30)
[2020-09-11] MEDS ORDERED: ONDANSETRON 2MG/ML, 2ML IVPush ONE (01:30)
[2020-09-11 01:41] LABS: PH, VENOUS 7.436 pH (7.320-7.420)
[2020-09-11 01:45] LABS: FIO2 ROOM AIR %
[2020-09-11 01:50] LABS: BASOPHILS % (AUTO) 0 % (0-1); EOSINOPHILS % (AUTO) 0 % (1-7); LYMPHOCYTES % (AUTO) 6 % (22-44); MEAN CORPUSCULAR HEMOGLOBIN 22.1 pg (27.0-34.8); MEAN CORPUSCULAR HGB CONC 31.2 g/dL (32.4-35.8); MEAN PLATELET VOLUME 8.9 fL (7.4-10.4); MONOCYTES % (AUTO) 2 % (2-9); NEUTROPHILS % (AUTO) 92 % (42-75); PLATELET COUNT 381 x10^3/uL (130-400); RED BLOOD COUNT 4.86 x10^6/uL (3.82-5.3); RED CELL DISTRIBUTION WIDTH 16.9 % (9.6-15.2)
[2020-09-11 01:54] LABS: ALANINE AMINOTRANSFERASE 18 U/L (12-78); ALBUMIN 3.7 g/dL (3.4-5.0); ANION GAP 9 mmol/L (5-15); CALCIUM 8.9 mg/dL (8.5-10.1); CHLORIDE 98 mmol/L (98-107)
[2020-09-11 01:58] LABS: ALKALINE PHOSPHATASE 90 U/L (45-117); BILIRUBIN,TOTAL 0.4 mg/dL (0.2-1.0); TOTAL PROTEIN 7.9 g/dL (6.4-8.2)
[2020-09-11 02:11] LABS: ACETONE, SERUM Moderate(40mg/dL) (Negative)
[2020-09-11 02:15] LABS: MD SCAN
[2020-09-11 02:45] LABS: MICROSCOPIC AUTO
[2020-09-11] MEDS ORDERED: INSULIN REGULAR 100 UNITS/ML, 3ML VIAL SQ-INSULIN ONE (03:00)
[2020-09-11] MEDS ORDERED: ZIPRASIDONE 20 MG INJ IM ONE ×2 (03:00→03:07)
--- NOTE | 2020-09-11 03:03 | NUR ---
REPORT GIVEN TO JC MELÉNDEZ.
[2020-09-11] MEDS ORDERED: INSULIN SINGLE DOSE, ER ONE (03:09)
[2020-09-11 04:12] VITALS: BP 161/94
== END 2020-09-11 04:15 | disposition home or self-care (01) ==
LOC: ED 01:20
DX: R10.84 Generalized abdominal pain (principal); E10.43 Type 1 diabetes mellitus with diabetic autonomic (poly)neuropathy; K31.84 Gastroparesis; R11.2 Nausea with vomiting, unspecified; K21.00 Gastro-esophageal reflux disease with esophagitis, without bleeding; I10 Essential (primary) hypertension; E10.649 Type 1 diabetes mellitus with hypoglycemia without coma; E10.10 Type 1 diabetes mellitus with ketoacidosis without coma; F17.210 Nicotine dependence, cigarettes, uncomplicated
CPT/HCPCS: 36415; 80053; 81001; 82010; 82803; 82962; 84703; 85025; 96361; 96372; 96374; 99284; 99406; J1815; J2405; J3486; J7030